=== PATIENT | female | born 1935 | race Hispanic/Latino ===

== ENCOUNTER 2018-06-09 06:37 | Inpatient (IN) | payer MEDICARE ==
--- NOTE | 2018-06-09 07:18 | ED PDOC ---
Arrival/HPI - General Chief Complaint: Altered Mental Status Time Seen by Provider: 06/09/18 07:06 Historian: Family (Son) - History of Present Illness Time/Duration: Prior to Arrival Symptom Onset: Gradual Symptom Course: Worsening Associated Symptoms (Text): 06/09/18 07:15 Patient's son reports that the patient lives alone. The patient's next door sherry meng called the son this morning stating that the patient was wandering around in the streets. This happened yesterday also and the son was able to convince the patient to go back into her home. Today the patient reports that there were people in her house trying to daniel her and the son reports that the entire house is in chaos and that the patient will not admit that she did this to her own apartment. Patient refuses to take all of her medications. There is a history of dementia. He does not take her blood pressure medication or her psychiatric medications. Patient is awake alert cooperative but oriented 1 only. The son believes that the patient needs a psychiatric admission. When she and the son are together she becomes very agitated. When he is not near her she is calm and cooperative. Past Medical History - Provider Review Nursing Documentation Reviewed: Yes - Infectious Disease Hx of Infectious Diseases: None - Tetanus Immunization Tetanus Immunization: Unknown - Cardiac Hx Cardiac Disorders: Yes Hx Hypertension: Yes - Neurological Hx Neurological Disorder: Yes Hx Dementia: Yes Hx Transient Ischemic Attacks (TIA): Yes - Hematological/Oncological Hx Blood Transfusions: No Hx Blood Transfusion Reaction: No - Psychiatric Hx Depression: No Hx Emotional Abuse: No Hx Physical Abuse: No Hx Substance Use: No - Anesthesia Hx Anesthesia Reactions: No Hx Malignant Hyperthermia: No - Suicidal Assessment Feels Threatened In Home Enviroment: No Family/Social History - Physician Review Nursing Documentation Reviewed: Yes Family/Social History: Unknown Family HX Smoking Status: Never Smoked Hx Alcohol Use: No Hx Substance Use: No Hx Substance Use Treatment: No Allergies/Home Meds Allergies/Adverse Reactions: Allergies No Known Allergies Allergy (Verified 02/19/13 17:12) Home Medications: Home Meds Medication Instructions Recorded Confirmed Aspirin [Radha Genuine Aspirin] 81 mg PO DAILY 09/30/12 06/09/18 Clopidogrel Hydrogen Sulfate 1 tab PO DAILY 09/30/12 06/09/18 [Plavix] Ca/D3/Mag Ox/Zinc/Director Electrical Engineering/Maycol/Bor 1 tab PO DAILY 06/09/18 06/09/18 [Calcium 600-D3 Plus Caplet] Losartan/Hydrochlorothiazide 1 tab PO DAILY 06/09/18 06/09/18 [Losartan-Hctz 100-12.5 mg Tab] amLODIPine [Norvasc] 5 mg PO DAILY 06/09/18 06/09/18 Review of Systems - Physician Review All systems were reviewed & negative as marked: Yes - Review of Systems Systems not reviewed;Unavailable: Dementia Physical Exam Vital Signs Reviewed: Yes Vital Signs Temp Pulse Resp BP Pulse Ox 06/09/18 06:49 97.9 F 86 18 167/86 H 97 Temperature: Afebrile Blood Pressure: Hypertensive Pulse: Regular Respiratory Rate: Normal Appearance: Positive for: Well-Appearing, Non-Toxic, Comfortable Pain Distress: None Mental Status: Positive for: other (Oriented 1 only) - Systems Exam Head: Present: Atraumatic, Normocephalic Pupils: Present: PERRL Extroacular Muscles: Present: EOMI Conjunctiva: Present: Normal Mouth: Present: Moist Mucous Membranes Pharnyx: No: ERYTHEMA, EXUDATE, TONSILS ENLARGED Neck: Present: Normal Range of Motion Respiratory/Chest: Present: Clear to Auscultation, Good Air Exchange, Decreased Breath Sounds. No: Respiratory Distress, Accessory Muscle Use Cardiovascular: Present: Regular Rate and Rhythm, Normal S1, S2. No: Murmurs Abdomen: No: Tenderness, Distention, Peritoneal Signs, Rebound, Guarding Upper Extremity: Present: Normal Inspection. No: Cyanosis, Edema Lower Extremity: Present: Normal Inspection. No: Edema Neurological: Present: GCS=15, CN II-XII Intact, Speech Normal, Motor Func Grossly Intact Skin: Present: Warm, Dry, Normal Color. No: Rashes Psychiatric: Present: Alert, Normal Mood, Hallucinations. No: Normal Insight, Normal Concentration, Intoxicated, Lethargic Medical Decision Making ED Course and Treatment: 06/09/18 07:19 EKG shows normal sinus rhythm rate approximately 90 with poor R-wave progression and no acute ST or T-wave changes. 06/09/18 08:20 Patient's daughter arrives who is power of erisa attorney and confirms the son's version that the patient has hallucinations and is demented and she also is requesting a psychiatric admission. 06/09/18 08:38 Crisis has been called for evaluation. 06/09/18 10:50 Seen and evaluated by crisis and psychiatric floor admission arrangements made. - Lab Interpretations Lab Results: Lab Results 06/09/18 06:50: POC Glucose (mg/dL) 91 - RAD Interpretation Radiology Orders: 06/09/18 07:13 HEAD W/O CONTRAST [CT] Stat CHEST PORTABLE [RAD] Stat CT scan of the head as read by the radiologist shows no acute findings. X-ray chest one view is read by the radiologist shows no acute findings. Ux Engineer: Radiologist - EKG Interpretation Interpreted by ED Physician: Yes Type: 12 lead EKG - Scribe Statement The provider has reviewed the documentation as recorded by the Scribe Grazyna Benjamin All medical record entries made by the Scribe were at my direction and personally dictated by me. I have reviewed the chart and agree that the record accurately reflects my personal performance of the history, physical exam, medical decision making, and the department course for this patient. I have also personally directed, reviewed, and agree with the discharge instructions and disposition. Disposition/Present on Arrival - Present on Arrival Any Indicators Present on Arrival: No History of DVT/PE: No History of Uncontrolled Diabetes: No Urinary Catheter: No History of Decub. Ulcer: No History Surgical Site Infection Following: None - Disposition Have Diagnosis and Disposition been Completed?: Yes Diagnosis: Dementia, Urinary tract infection Disposition: HOSPITALIZED Disposition Time: 10:51 Patient Plan: Admission Patient Problems: Current Active Problems Problem Status Onset Dementia Acute Condition: GOOD Referrals: Starr Rivas MD [Primary Care Provider] - Follow up with primary Forms: [employer] (I[place]ic)
[2018-06-09 07:32] LABS: BASO # 0.02 K/mm3 (0.0-2.0); BASO % 0.3 % (0.0-3.0); EOS # 0.2 (0.0-0.7); EOS % 2.5 % (1.5-5.0); GRAN # 3.76 (1.4-6.5); GRAN % 56.2 % (50.0-68.0); HEMOGLOBIN 12.9 g/dL (12.0-16.0); LYMPH # 1.9 (1.2-3.4); MEAN CELL VOLUME 90.5 fl (80.0-105.0); MEAN CORPUSCULAR HEMOGLOBIN 30.5 pg (25.0-35.0); MEAN CORPUSCULAR HGB CONC 33.7 g/dl (31.0-37.0); MEAN PLATELET VOLUME 10.4 fl (7.0-11.0); MONO # 0.8 (0.1-0.6); RBC 4.23 10^6/uL (3.5-6.1); RED CELL DISTRIBUTION WIDTH 12.3 % (11.5-14.5); WHITE BLOOD COUNT 6.7 10^3/ul (4.5-11.0)
[2018-06-09 07:40] LABS: INR 1.04; PARTIAL THROMBOPLASTIN TIME 33.2 Seconds (25.1-36.5)
[2018-06-09 07:44] LABS: ACETAMINOPHEN < 10.0 ug/ml (10.0-20.0); ALB/GLOB RATIO 1.5 (1.1-1.8); ALBUMIN 4.4 g/dL (3.0-4.8); ALT/SGPT 26 U/L (7-56); AST/SGOT 32 U/L (14-36); BLOOD UREA NITROGEN 12 mg/dL (7-21); CALCIUM 9.2 mg/dL (8.4-10.5); GFR NON-AFRICAN AMERICAN > 60; SALICYLATE < 1 mg/dL (2.0-20.0)
[2018-06-09 07:55] LABS: TROPONIN I < 0.01 ng/mL
--- NOTE | 2018-06-09 08:19 | CT ---
Date of service: 06/09/2018 PROCEDURE: CT HEAD WITHOUT CONTRAST. HISTORY: ams COMPARISON: None available. TECHNIQUE: Axial computed tomography images were obtained through the head/brain without intravenous contrast. Radiation dose: Total exam DLP = 831 mGy-cm. This CT exam was performed using one or more of the following dose reduction techniques: Automated exposure control, adjustment of the mA and/or kV according to patient size, and/or use of iterative reconstruction technique. FINDINGS: HEMORRHAGE: No intracranial hemorrhage. BRAIN: No mass effect or edema. Severe chronic microvascular changes are seen in the deep white matter. There are no acute intracranial findings VENTRICLES: Unremarkable. No hydrocephalus. CALVARIUM: Unremarkable. PARANASAL SINUSES: Unremarkable as visualized. No significant inflammatory changes. MASTOID AIR CELLS: Unremarkable as visualized. No inflammatory changes. OTHER FINDINGS: None. IMPRESSION: No acute intracranial findings
--- NOTE | 2018-06-09 08:21 | RAD ---
Date of service: 06/09/2018 HISTORY: ams COMPARISON: 02/19/2013 FINDINGS: LUNGS: No active pulmonary disease. PLEURA: No significant pleural effusion identified, no pneumothorax apparent. CARDIOVASCULAR: Normal. OSSEOUS STRUCTURES: No significant abnormalities. VISUALIZED UPPER ABDOMEN: Normal. OTHER FINDINGS: None. IMPRESSION: No active disease.
[2018-06-09 08:25] LABS: PH,URINE 6.5 (4.7-8.0); URINE APPEARANCE CLEAR (CLEAR); URINE BILIRUBIN NEGATIVE (NEGATIVE); URINE BLOOD SMALL (NEGATIVE); URINE COLOR YELLOW (YELLOW); URINE GLUCOSE (UA) NEGATIVE (NEGATIVE); URINE LEUKOCYTE ESTERASE MODERATE Leu/uL (NEGATIVE); URINE PROTEIN NEGATIVE mg/dL (<30 mg/dL); URINE UROBILINOGEN 0.2 E.U./dL (<1 E.U./dL)
[2018-06-09 08:49] LABS: BARBITURATES, UR NEGATIVE (NEGATIVE); BENZODIAZEPINES, UR NEGATIVE (NEGATIVE); OPIATES, UR NEGATIVE (NEGATIVE); PHENCYCLIDINE, UR NEGATIVE (NEGATIVE)
[2018-06-09 08:54] LABS: URINE BACTERIA MANY (NEG); URINE WBC 20 - 25 /hpf (0-6)
[2018-06-09 08:55] LABS: URINE AMORPHOUS SEDIMENT FEW
[2018-06-09] MEDS ORDERED: Tmp-Smz 800 mg-160 mg DS Tab PO STA (08:59)
--- NOTE | 2018-06-09 09:28 | CARD ---
APPROVED REPORT Date of service: 06/09/2018 EKG Measurement Heart [id number] CT [id number] <Conclusion> Sinus rhythm with premature atrial complexes Minimal voltage criteria for LVH, may be normal variant Cannot rule out Anterior infarct, age undetermined Abnormal ECG
[2018-06-09 13:24] VITALS: O2SAT 99
--- NOTE | 2018-06-09 18:29 | PCM.BM ---
<Leatha Haynes - Last Filed: 06/09/18 18:26> Treatment Plan Problems - Problems identified on initial assessmt MEDICATION NON ADHERENCE Date Initiated: 06/09/18 Time Initiated: 18:30 Assessment reference: NA Status: Active Priority: 1 DELUSIONS Date Initiated: 06/09/18 Time Initiated: 18:30 Assessment reference: NA Status: Active Priority: 2 THOUGHTS PROCESS Date Initiated: 06/09/18 Time Initiated: 18:30 Assessment reference: NA Status: Active Priority: 3 INEFFECTIVE INDV COPING Date Initiated: 06/09/18 Time Initiated: 18:30 Assessment reference: NA Status: Active Priority: 4 Treatment assets and liabiliti Patient Assests: cooperative, good support system, negotiates basic needs Patient Liabilities: live alone, imparied memory - Milieu Protocol Maintain good personal hygiene: daily Encourage regular showers, daily Remind patient to perform daily oral care, daily Assist patient to perform ADL's Maintain personal safety: every shift Educate patient to report safety concerns to staff, every shift Monitor environment for contraband/sharps Medication safety: Monitor for expected outcome, potential side effects: every shift, Assess barriers to learning: every shift, Assess readiness for medication education: every shift Discharge/Continuing Care - Education Needs Education Needs: Family Medication, Family Diagnosis/Disease Process, Family Placement options, Family Community resources, Family Aftercare Safety Plan, Patient Medication, Patient Diagnosis/Disease Process, Patient Placement options, Patient Community resources, Patient Activities of Daily Living, Patient Nutrition, Patient Uses of Medical Equipment, Patient Health Practices/Safety, Patient Personal Hygiene/Grooming, Patient Aftercare Safety Plan - Discharge Discharge Criteria: Tolerates medication w/o severe side effects, Free of paranoid thoughts, Free of agitation, Normal sleep pattern, Ability to care for self, Reduction of target symptoms Discharge to:: Home <Roxie Salas - Last Filed: 06/10/18 16:15> - Diagnosis (1) Dementia with behavioral disturbance Status: Acute Interventions: 06/10/18 16:15 Pt will be seen by medical team as needed Medications will be confirmed and resumed Additional consultation by neurology Lab work as needed (CBC, CMP, TSH, free T4, UA) CXR as needed EKG Physical therapy evaluation as needed antipsychotic meds as needed abx for possible UTI 06/10/18 16:17 <Mary Durant Last Filed: 06/10/18 16:46> Family Contact Family involvement: Family/SO is involved Family contact name: Liana Christie, daughter/POA Family contacted how many times per week?: 2
[2018-06-09 18:57] VITALS: BMI 21.5
[2018-06-10 07:56] LABS: GLUCOSE,FASTING 83 mg/dL (65-110); HDL CHOLESTEROL 67 mg/dL (29-60)
[2018-06-10 08:07] LABS: LDL CHOLESTEROL 125 mg/dL (0-129)
--- NOTE | 2018-06-10 08:49 | CON ---
DATE: 06/09/2018 HISTORY OF PRESENT ILLNESS: This is an 83-year-old female who lives alone, came here because the patient was wandering around in the street and son brought her back to home and the patient refused to take medications, so brought her to the hospital, called to evaluate the patient. ALLERGIES: NO KNOWN DRUG ALLERGY. MEDICATIONS: On Plavix, aspirin, and losartan. PHYSICAL EXAMINATION: VITAL SIGNS: Blood pressure 167/86. HEENT: Normocephalic and atraumatic. NECK: Supple. NEUROLOGIC: Awake, alert, and oriented to self and place. Cranial nerves II through XII are tested. EOM is intact. Visual denney full. No facial asymmetry. Tongue midline. Motor examination; moves all the extremities spontaneously. Deep tendon reflexes are 1+. Both plantars are downgoing. Sensory appears intact. Cerebellar, gait was normal. IMPRESSION AND PLAN: Dementia and CAT scan of the head was done, which was reported negative and workup in progress. Continue Namenda. We will follow up. Blair Pozo MD
--- NOTE | 2018-06-10 15:21 | CP.PCM.CON ---
<Jet Martin - Last Filed: 06/10/18 15:17> History of Present Illness - History of Present Illness History of Present Illness: Jet Martin PGY1 Consult Note for Dr. Park Patient is a 83 year old female with PMH of HTN, hyperlipidemia, dementia, TIA, ischemic cerebrovascular disease who was brought in to the ER yesterday for altered mental status. Her son states that the patient was wandering around in the streets and was unable to convince patient to go back into her house. Yesterday, the patient reports that there were people in her house trying to daniel her and the son reports that the entire house was in chaos and that the patient will not admit that she did this to her own apartment. Patient refuses to take her BP or psychiatric medications. Today, patient denies any acute complaints, including headaches, chest pain, shortness of breath, n/v/c/d, leg swelling. In the ED, EKG showed normal sinus rhythm rate approximately 90 with poor R-wave progression and no acute ST or T-wave changes. CT scan of the head and X-ray of the chest shows no acute findings. Crisis was called for evaluation. Patient was started on her home psychiatric and blood pressure medications. Neurology was consulted. PMH: HTN, Hyperlipidemia, dementia, ischemic cerebrovascular disease, Hx of TIA PSH: unobtainable Allergies: NKDA Social/Family hx: Patient lives alone. Patient denies any smoking, alcohol or drug use. Unknown family history. Home medications: Aspirin 81 mg qd Clopidogrel 75 mg 1qd Losartan/HCTZ 100-12.5 1qd Amlodipine 5 mg 1qd Ca 600 -D3 Plus caplet Review of Systems - Review of Systems Review of Systems: as per HPI Past Patient History - Infectious Disease Hx of Infectious Diseases: None - Tetanus Immunizations Tetanus Immunization: Unknown - Past Social History Smoking Status: Never Smoked - CARDIAC Hx Cardiac Disorders: Yes Hx Hypertension: Yes - PULMONARY Hx Tuberculosis: No - NEUROLOGICAL Hx Neurological Disorder: Yes Hx Dementia: Yes Hx Transient Ischemic Attacks (TIA): Yes - HEMATOLOGICAL/ONCOLOGICAL Hx Blood Transfusions: No Hx Blood Transfusion Reaction: No - GENITOURINARY/GYNECOLOGICAL Hx Sexually Transmitted Disorders: No - PSYCHIATRIC Hx Substance Use: No - SURGICAL HISTORY Hx Surgeries: No - ANESTHESIA Hx Anesthesia Reactions: No Hx Malignant Hyperthermia: No Meds Allergies/Adverse Reactions: Allergies Allergy/AdvReac Type Severity Reaction Status Date / Time No Known Allergies Allergy Verified 06/09/18 18:56 - Medications Medications: Current Medications Amlodipine Besylate (Norvasc) 5 mg PO DAILY [facility] Last Admin: 06/10/18 09:47 Dose: 5 mg Clopidogrel Bisulfate (Plavix) 75 mg PO DAILY [facility] Last Admin: 06/10/18 09:48 Dose: 75 mg Hydralazine HCl (Apresoline) 10 mg PO Q6H PRN PRN Reason: Systolic Blood Pressure Hydrochlorothiazide (Microzide) 12.5 mg PO DAILY [facility] Last Admin: 06/10/18 09:48 Dose: 12.5 mg Losartan Potassium (Cozaar) 100 mg PO DAILY [facility] Last Admin: 06/10/18 09:47 Dose: 100 mg Quetiapine Fumarate (Seroquel) 25 mg PO HS [facility]; Protocol Ziprasidone (Geodon Inj) 10 mg IM TID PRN; Protocol PRN Reason: severe agitaiton/psychosis Ziprasidone (Geodon Cap) 20 mg PO Q6H PRN; Protocol PRN Reason: psychosis/agitation Physical Exam - Constitutional Appears: Well, No Acute Distress, Confused - Head Exam Head Exam: ATRAUMATIC, NORMOCEPHALIC - Eye Exam Eye Exam: EOMI, Normal appearance Pupil Exam: NORMAL ACCOMODATION, PERRL - ENT Exam ENT Exam: Mucous Membranes Moist, Normal Exam - Neck Exam Neck exam: Positive for: Normal Inspection - Respiratory Exam Respiratory Exam: Clear to Auscultation Bilateral, NORMAL BREATHING PATTERN. absent: Rales, Rhonchi, Wheezes - Cardiovascular Exam Cardiovascular Exam: REGULAR RHYTHM, +S1, +S2. absent: Gallop, Rubs, Systolic Murmur - GI/Abdominal Exam GI & Abdominal Exam: Normal Bowel Sounds, Soft. absent: Distended, Firm, Tenderness - Extremities Exam Extremities exam: Positive for: normal inspection. Negative for: pedal edema - Neurological Exam Neurological exam: Alert Additional comments: AAO x1, to person - Psychiatric Exam Psychiatric exam: Normal Affect, Normal Mood Results - Vital Signs Recent Vital Signs: Last Vital Signs Temp 98.0 F 06/10/18 07:18 Pulse 74 06/10/18 09:47 Resp 20 06/10/18 07:18 BP 162/79 H 06/10/18 09:47 Pulse Ox 99 06/09/18 13:51 - Labs Result Diagrams: 06/09/18 07:20 06/09/18 07:20 Labs: Laboratory Results - last 24 hr 06/10/18 06/10/18 07:15 07:15 Fasting Glucose 83 Triglycerides 82 Cholesterol 237 H LDL Cholesterol Direct 125 HDL Cholesterol 67 H TSH 3rd Generation 4.34 Assessment & Plan - Assessment and Plan (Free Text) Assessment: 83yo F PMH HTN, hyperlipidemia, dementia, TIA, ischemic cerebrovascular disease who was brought in to the ER yesterday for altered mental status, admitted to psych for dementia with psychotic features. Medicine was consulted for evaluation of her HTN and HLD. Plan: HTN - BP 162/79, before AM meds - pt asymptomatic - continue norvasc 5 daily - continue hydralazine 10 q6h PRN SBP >160 - continue HCTZ 12.5 daily - continue losartan 100 daily - monitor BP H/o TIA - continue plavix 75 daily Dementia - continue seroquel 25 HS - continue geodon PRN Pt seen and case reviewed with Dr. Park. We will sign off of this patient at this time. Please re-consult us for returning issues. Thank you for allowing us to participate in care with you. <Fatoumata Park - Last Filed: 06/11/18 16:06> Meds - Medications Medications: Current Medications Amlodipine Besylate (Norvasc) 5 mg PO DAILY [facility] Last Admin: 06/10/18 09:47 Dose: 5 mg Cefpodoxime Proxetil (Vantin) 100 mg PO Q12 [facility]; Protocol Last Admin: 06/11/18 06:52 Dose: 100 mg Clopidogrel Bisulfate (Plavix) 75 mg PO DAILY [facility] Last Admin: 06/10/18 09:48 Dose: 75 mg Hydralazine HCl (Apresoline) 10 mg PO Q6H PRN PRN Reason: Systolic Blood Pressure Hydrochlorothiazide (Microzide) 12.5 mg PO DAILY [facility] Last Admin: 06/10/18 09:48 Dose: 12.5 mg Losartan Potassium (Cozaar) 100 mg PO DAILY [facility] Last Admin: 06/10/18 09:47 Dose: 100 mg Quetiapine Fumarate (Seroquel) 25 mg PO AMHS [facility]; Protocol Last Admin: 06/10/18 22:09 Dose: Not Given Ziprasidone (Geodon Inj) 10 mg IM TID PRN; Protocol PRN Reason: severe agitaiton/psychosis Last Admin: 06/10/18 21:58 Dose: 10 mg Ziprasidone (Geodon Cap) 20 mg PO Q6H PRN; Protocol PRN Reason: psychosis/agitation Results - Vital Signs Recent Vital Signs: Last Vital Signs Temp 97.6 F 06/11/18 07:11 Pulse 70 06/11/18 07:11 Resp 20 06/11/18 07:11 BP 157/71 H 06/11/18 07:11 Pulse Ox 99 06/09/18 13:51 - Labs Result Diagrams: 06/09/18 07:20 06/09/18 07:20 Labs: Laboratory Results - last 24 hr 06/10/18 07:15 RPR Nonreactive Attending/Attestation - Attestation I have personally seen and examined this patient.: Yes I have fully participated in the care of the patient.: Yes I have reviewed all pertinent clinical information: Yes Notes (Text): 06/11/18 16:03 Medical record note made by the resident after discussion with my direction and input after the patient was personally seen and examined by me. I have reviewed the chart and agree that the record accurately reflects by personal performance of the history, physical exam, data review, and medical decision-making, in the course for the patient. I have also personally directed the plan of care. UA is suggestive of UTI. We will start on oral antibiotics Cefpodoxime 100 mg BID for 5 days and will also follow up cultures. HTN continue Losartan and Amlodpine , will monitor blood pressure. There is no active medical issue at this time.We will sign off. Please call us back if any question.
--- NOTE | 2018-06-10 16:14 | PCM.PSYCH ---
Initial Psychiatric Evaluation - Initial Psychiatric Evaluation Type of Admission: Voluntary Legal Status: DPOA (patient daughter ROBIN signed consent for treatment) Chief Complaint (in patient's own words): "my family including my daughter wanted me out of the house, they want to sell my house, they were saying crazy stuff about me, my nephew was saying that I am whoooohoooo, you know what I mean whooooohooo..." Patient's Reaction to Hospitalization: patient was admitted to the psychiatric inpatient unit for evaluation and stabilization of psychosis, patient was wandering around in the community, had visual hallucinations, paranoia, inability to function. History of Present Illness and Precipitating Events: shortly patient is 83 year old female not known previous psychiatric history, patient was brought in by her family including her daughter who is pt's power of ip technology transactions attorney, as per report pt's neighbor called pt's son tstating that the patient was wandering around in the streets. Pt was convinced that there were people in her house trying to daniel her, as per ED report pt's son found pt's a[place] is in chaos and that the patient will not admit that she did this to her own apartment, pt was refusing to take all of her medications, was refusing to go and see doctors in the community, pt also has ? h/o of dementia, pt was refusing her blood pressure medication or her psychiatric medications. this keno writer / runner had prolonged conversation with patient's power of ip technology transactions attorney Liana, daughter of the patient. As per Liana patient was not taking her medications, was refusing to go to the doctors, as a result patient appears to be more disorganized, was wandering in the community at times patient feels paranoid as well as having visual hallucinations has impression that people are breaking into her house, patient never been evaluated by neurologist or she did not see primary care physician for months and years. Family is very concerned about patient safety, this keno writer / runner educated power of ip technology transactions attorney about risk, benefits, and alternatives of medications, treatment plan was discussed in details before patient was accepted into the psychiatric inpatient unit. POA agreed with the treatment plan and was appreciative. patient was seen and examined today at the treatment team meeting, patient presented to be confused, disorganized, extremely paranoid, pt was convinced that her family is selling her house, pt also convinced that her daughter is spreading the rumors about pt "everybody think that I am whooooohooo". pt wa very hard to interview, pt is disorganized, confused, does not know where she is. Medical h/o: hyperlipidemia, hypertension, urinary tract infection. Past psychiatric history: Not known, as per family patient did not have history any mental illness, but possible dementia. Family history: Strong family history of dementia. 06/09/18 07:20 06/09/18 07:20 Lab Results 06/10/18 07:15: TSH 3rd Generation 4.34 06/10/18 07:15: Fasting Glucose 83, Triglycerides 82, Cholesterol 237 H, LDL Cholesterol Direct 125, HDL Cholesterol 67 H 06/09/18 08:30: Ammonia < 9 L 06/09/18 08:20: Urine Opiates Screen Negative, Urine Methadone Screen Negative, Ur Barbiturates Screen Negative, Ur Phencyclidine Scrn Negative, Ur Amphetamines Screen Negative, U Benzodiazepines Scrn Negative, U Oth Cocaine Metabols Negative, U Cannabinoids Screen Negative 06/09/18 08:18: Urine Color Yellow, Urine Appearance Clear, Urine pH 6.5, Ur Specific [place] 1.010, Urine Protein Negative, Urine Glucose (UA) Negative, Urine Ketones Negative, Urine Blood Small H, Urine Nitrate Negative, Urine Bilirubin Negative, Urine Urobilinogen 0.2, Ur Leukocyte Esterase Moderate H, Urine RBC 5 - 10, Urine WBC 20 - 25, Ur Epithelial Cells 4 - 5, Amorphous Sediment Few, Urine Bacteria Many 06/09/18 07:20: Salicylates < 1 L, Acetaminophen < 10.0 L 06/09/18 07:20: TSH 3rd Generation 3.95, Alcohol, Quantitative < 10 06/09/18 07:20: Sodium 140, Potassium 3.6, Chloride 104, Carbon Dioxide 27, An ion Gap 13, BUN 12, Creatinine 0.6 L, Est GFR ( Amer) > 60, Est GFR (Non- Af Amer) > 60, Random Glucose 93, Calcium 9.2, Phosphorus 3.6, Magnesium 2.1, Total Bilirubin 0.5, AST 32, ALT 26, Alkaline Phosphatase 54, Lactate Dehydrogenase 585, Total Creatine Kinase 180, Troponin I < 0.01, Total Protein 7.3, Albumin 4.4, Globulin 2.9, Albumin/Globulin Ratio 1.5 06/09/18 07:20: PT 12.0, INR 1.04, APTT 33.2 06/09/18 07:20: WBC 6.7, RBC 4.23, Hgb 12.9, Hct 38.3, MCV 90.5, MCH 30.5, MCHC 33.7, RDW 12.3, Plt Count 278, MPV 10.4, Gran % 56.2, Lymph % (Auto) 29.0, [place] % (Auto) 12.0 H, Eos % (Auto) 2.5, Baso % (Auto) 0.3, Gran # 3.76, Lymph # (Auto) 1.9, [place] # (Auto) 0.8 H, Eos # (Auto) 0.2, Baso # (Auto) 0.02 06/09/18 06:50: POC Glucose (mg/dL) 91 Vital Signs Temp Pulse Resp BP Pulse Ox 06/10/18 09:47 74 162/79 H 06/10/18 07:18 98.0 F 74 20 162/79 H 06/09/18 17:50 82 18 144/63 06/09/18 16:40 71 18 180/82 H 06/09/18 16:00 71 180/82 H 06/09/18 15:00 97.9 F 88 18 181/93 H 06/09/18 13:51 98.2 F 86 17 152/95 H 99 06/09/18 13:07 83 17 152/95 H 99 06/09/18 12:45 98.2 F 87 17 99 06/09/18 09:12 79 17 166/76 H 97 06/09/18 07:29 81 17 173/98 H 98 06/09/18 06:49 97.9 F 86 18 167/86 H 97 Current Medications: Active Medications Generic Name Dose Route Start Last Admin Trade Name Freq PRN Reason Stop Dose Admin Amlodipine Besylate 5 mg 06/10/18 08:00 Norvasc PO DAILY PAULINE Clopidogrel Bisulfate 75 mg 06/09/18 15:00 06/09/18 16:00 Plavix PO 75 mg DAILY PAULINE Administration Hydralazine HCl 10 mg 06/09/18 14:51 Apresoline PO Q6H PRN Systolic Blood Pressure Hydrochlorothiazide 12.5 mg 06/10/18 08:00 Microzide PO DAILY PAULINE Losartan Potassium 100 mg 06/10/18 08:00 Cozaar PO DAILY PAULINE Quetiapine Fumarate 12.5 mg 06/09/18 22:00 06/09/18 21:31 Seroquel PO 12.5 mg HS PAULINE Administration Protocol Ziprasidone 10 mg 06/09/18 16:08 Geodon Inj IM TID PRN severe agitaiton/psychosis Protocol Ziprasidone 20 mg 06/09/18 16:08 Geodon Cap PO Q6H PRN psychosis/agitation Protocol Past Psychiatric History - Past Psychiatric History Previous Treatment History: None Prior Professional Help: see HPI Prior Psychiatric Treatment: see HPI At what hospital: see HPI Duration: see HPI Nature of Treatment: see HPI Explanation of prior treatment: see HPI History of Abuse: see HPI denied History of ETOH/Drug Use: see HPI as per family patient does not have history of substance abuse, no history of alcohol use, patient does not smoke History of Family Illness: strong family history of dementia Pertinent Medical Hx (Current Medical&Sleep Prob, Allergies): Allergies Allergy/AdvReac Type Severity Reaction Status Date / Time No Known Allergies Allergy Verified 06/09/18 18:56 Aspirin [Radha Genuine Aspirin] 81 mg PO DAILY 09/30/12 Clopidogrel Hydrogen Sulfate [Plavix] 1 tab PO DAILY 09/30/12 Ca/D3/Mag Ox/Zinc/Candy Dipper/Maycol/Bor [Calcium 600-D3 Plus Cap[place]] 1 tab PO DAILY 06/09/18 Losartan/Hydrochlorothiazide [Losartan-Hctz 100-12.5 mg Tab] 1 tab PO DAILY 06/09/18 amLODIPine [Norvasc] 5 mg PO DAILY 06/09/18 Review of Systems - Review of Systems Systems not reviewed;Unavailable: Acuity of Condition - EENT Eyes: As Per HPI Ears: As Per HPI Nose/Mouth/Throat: As Per HPI - Breasts Breasts: As Per HPI - Cardiovascular Cardiovascular: As Per HPI - Respiratory Respiratory: As Per HPI - Gastrointestinal Gastrointestinal: As Per HPI - Genitourinary Genitourinary: As Per HPI - Reproductive: Female Reproductive:Female: As Per HPI - Menstruation Menstruation: As Per HPI - Musculoskeletal Musculoskeletal: As Par HPI - Integumentary Integumentary: As Per HPI - Neurological Neurological: As Per HPI - Psychiatric Psychiatric: As Per HPI - Endocrine Endocrine: As Per HPI - Hematologic/Lymphatic Hematologic: As Per HPI Mental Status Examination - Personal Presentation Personal Presentation: Looks stated age - Affect Affect: Constricted (irritable and annoyed), Flat - Motor Activity Motor Activity: Calm - Reliability in Providing Information Reliability in Providing Information: Poor, due to alteration in thoughts, Poor, due to cognitve impairment - Speech Speech: Disorganized, Irrelevant, Tangential - Mood Mood: Depressed, Anxious - Formal Thought Process Formal Thought Process: Hallucinations, Delusions, Paranoia, Loosening of associations, Circumstantial - Hallucinations/Delusions Hallucinations: Visual, Auditory Delusions: Persecution - Obsessions/Compulsions Obsessions: None Compulsions: None - Cognitive Functions Orientation: Person Sensorium: Alert Estimate of Intelligence: Below average Judgement: Imparied, as evidence by: Poor judgement, Imparied, as evidence by: Lack of insight into illness - Risk Risk: Elopement, Self-mutilation, Diminished functioning - Strength & Assets Inventory Strength & Assets Inventory: Other (family support, relatively good physical health) - Limitations Limitations: Other (severe no social symptoms, lives alone,dementia) DSM 5 DX - DSM 5 DSM 5 Diagnosis: psychosis NOS Rule out dementia with psychosis Rule out delirium - Recommended/Plan of Treatment Treatment Recommendations and Plan of Treatment: Milieu/structure/supportive therapy Medical consult called neurology consult called SW consultation for discharge plan and social issues Med management Seroquel 25 mg at the nighttime for psychosis Family involvement, discussed with pt's POA, risk, benefits, alternatives of medication as well as treatment plan discussed with POA Follow up on labs Will monitor closely Pt was educated about risk/benefits and alternatives of medications, coping strategies (safety plan, suicide prevention), relapse prevention, importance of follow up with psychiatrist and therapist, stay away from drugs/alcohol/smoking the rest of the medications as per medical team: Aspirin [Radha Genuine Aspirin] 81 mg PO DAILY Losartan/Hydrochlorothiazide [Losartan-Hctz 100-12.5 mg Tab] 1 tab PO DAILY amLODIPine [Norvasc] 5 mg PO DAILY Projected ELOS: 7 days Prognosis: guarded Discharge Plan and Discharge Criteria: Pt will be not depressed or manic, will be more hopeful, will be not psychotic or anxious, will be not having thoughts of harming self or others, will be tolerating medications well, will not have major side effects, will be able to function, will not pose threat to self or others. - Smoking Cessation Smoking Cessation Initiated: No Reason for not providing: denied smoking
[2018-06-10] MEDS: Cefpodoxime (Vantin) 100 mg Tab PO SCH (19:01)
[2018-06-11] MEDS: Cefpodoxime (Vantin) 100 mg Tab PO SCH ×2 (06:52→17:15)
--- NOTE | 2018-06-11 13:46 | CP.PCM.PCO ---
Physician Communication Note - Physician Communication Note Physician Communication Note: moderate cognitive impairment. c/w namenda 10mg po bid. f/u out pt.
--- NOTE | 2018-06-11 16:53 | PCM.PYCHPN ---
Psychiatric Progress Note - Psychiatric Progress Note Patient seen today, length of contact: 30 minutes Patient Chief Complaint: "I don't know..." Problems Identified/Issues Discussed: S group underwriter discussed treatment plan with patient power of title attorney, risks, benefits, alternatives of the medication discussed, POBlanco agreed. Medical Problems: see HPI she was seen by medical team, consult appreciated Diagnostic Results: 06/09/18 07:20 06/09/18 07:20 Lab Results 06/10/18 07:15: RPR Nonreactive 06/10/18 07:15: TSH 3rd Generation 4.34 06/10/18 07:15: Fasting Glucose 83, Triglycerides 82, Cholesterol 237 H, LDL Cholesterol Direct 125, HDL Cholesterol 67 H 06/09/18 08:30: Ammonia < 9 L 06/09/18 08:20: Urine Opiates Screen Negative, Urine Methadone Screen Negative, Ur Barbiturates Screen Negative, Ur Phencyclidine Scrn Negative, Ur Amphetamines Screen Negative, U Benzodiazepines Scrn Negative, U Oth Cocaine Metabols Neg ative, U Cannabinoids Screen Negative 06/09/18 08:18: Urine Color Yellow, Urine Appearance Clear, Urine pH 6.5, Ur Specific [place] 1.010, Urine Protein Negative, Urine Glucose (UA) Negative, Urine Ketones Negative, Urine Blood Small H, Urine Nitrate Negative, Urine Bilirubin Negative, Urine Urobilinogen 0.2, Ur Leukocyte Esterase Moderate H, Urine RBC 5 - 10, Urine WBC 20 - 25, Ur Epithelial Cells 4 - 5, Amorphous [place] Few, Urine Bacteria Many 06/09/18 07:20: Salicylates < 1 L, Acetaminophen < 10.0 L 06/09/18 07:20: TSH 3rd Generation 3.95, Alcohol, Quantitative < 10 06/09/18 07:20: Sodium 140, Potassium 3.6, Chloride 104, Carbon Dioxide 27, Anion Gap 13, BUN 12, Creatinine 0.6 L, Est GFR ( Amer) > 60, Est GFR (Non-Af Amer) > 60, Random Glucose 93, Calcium 9.2, Phosphorus 3.6, Magnesium 2.1, Total Bilirubin 0.5, AST 32, ALT 26, Alkaline Phosphatase 54, Lactate Dehydrogenase 585, Total Creatine Kinase 180, Troponin I < 0.01, Total Protein 7.3, Albumin 4.4, Globulin 2.9, Albumin/Globulin Ratio 1.5 06/09/18 07:20: PT 12.0, INR 1.04, APTT 33.2 06/09/18 07:20: WBC 6.7, RBC 4.23, Hgb 12.9, Hct 38.3, MCV 90.5, MCH 30.5, MCHC 33.7, RDW 12.3, Plt Count 278, MPV 10.4, Gran % 56.2, Lymph % (Auto) 29.0, [place] % (Auto) 12.0 H, Eos % (Auto) 2.5, Baso % (Auto) 0.3, Gran # 3.76, Lymph # (Auto) 1.9, [place] # (Auto) 0.8 H, Eos # (Auto) 0.2, Baso # (Auto) 0.02 06/09/18 06:50: POC Glucose (mg/dL) 91 Vital Signs Temp Pulse Resp BP Pulse Ox 06/11/18 07:11 97.6 F 70 20 157/71 H 06/10/18 16:00 77 161/69 H 06/10/18 09:47 74 162/79 H 06/10/18 07:18 98.0 F 74 20 162/79 H 06/09/18 17:50 82 18 144/63 06/09/18 16:40 71 18 180/82 H 06/09/18 16:00 71 180/82 H 06/09/18 15:00 97.9 F 88 18 181/93 H 06/09/18 13:51 98.2 F 86 17 152/95 H 99 06/09/18 13:07 83 17 152/95 H 99 06/09/18 12:45 98.2 F 87 17 99 06/09/18 09:12 79 17 166/76 H 97 06/09/18 07:29 81 17 173/98 H 98 06/09/18 06:49 97.9 F 86 18 167/86 H 97 DSM 5 Symptoms Update: shortly patient is 83 year old female not known previous psychiatric history, patient was brought in by her family including her daughter who is pt's power of title attorney, as per report pt's neighbor called pt's son tstating that the patient was wandering around in the streets. Pt was convinced that there were people in her house trying to daniel her, as per ED report pt's son found pt's house is in chaos and that the patient will not admit that she did this to her own apartment, pt was refusing to take all of her medications, was refusing to go and see doctors in the community, pt also has ? h/o of dementia, pt was refusing her blood pressure medication or her psychiatric medications. he shouldn't was seen today at the dining area, patient presented to be confused, paranoid, no changes with yesterday presentation. As per staff patient was compliant with the medications, has tendency to wander, needs constant redirection.. No agitation or aggression, patient tolerates medications well, no side effects observed or reported, aims 0, no EPS. Discussed with neurology team, Namenda was started. discussed with internal medicine team, antibiotic started for urinary tract infection DSM 5 Diagnosis: psychosis NOS Rule out dementia with psychosis Rule out delirium Medication Change: Yes (seroquel started) Medical Record Reviewed: Yes Consults ordered or reviewed: medical consultation appreciated Neurology consultation appreciated Mental Status Examination - Cognitive Function Orientation: Person Memory: Impaired Attention: Poor Concentration: Poor Association: Loose Fund of Knowledge: Poor - Mood Mood: Depressed, Anxious - Affect Affect: Constricted (irritable and annoyed), Flat - Formal Thought Process Formal Thought Process: Hallucinations, Delusions, Paranoia, Loosening of associations, Circumstantial - Suicidal Ideation Suicidal Ideation: No - Homicidal Ideation Homicidal Ideation: No Goal/Treatment Plan - Goal/Treatment Plan Need for Continued Stay: Remain at risks for inpatient hospitalization, Severe depression anxiety, Discharge may exacerbated symptoms, Severe functional impairment Progress Toward Problem(s) and Goals/Treatment Plan: Milieu/structure/supportive therapy Medical consult called neurology consult called SW consultation for discharge plan and social issues Med management Seroquel 25 mg at the morning and the nighttime for psychosis Family involvement, discussed with pt's POA, risk, benefits, alternatives of medication as well as treatment plan antibiotic started for urinary tract infection discussed with POA Follow up on labs Will monitor closely Pt was educated about risk/benefits and alternatives of medications, coping strategies (safety plan, suicide prevention), relapse prevention, importance of follow up with psychiatrist and therapist, stay away from drugs/alcohol/smoking the rest of the medications as per medical team: Aspirin [Radha Genuine Aspirin] 81 mg PO DAILY Losartan/Hydrochlorothiazide [Losartan-Hctz 100-12.5 mg Tab] 1 tab PO DAILY amLODIPine [Norvasc] 5 mg PO DAILY Estimated Date of D/C: 06/16/18
[2018-06-12] MEDS: Cefpodoxime (Vantin) 100 mg Tab PO SCH ×2 (06:29→17:56)
--- NOTE | 2018-06-12 15:17 | PCM.PYCHPN ---
Psychiatric Progress Note - Psychiatric Progress Note Patient seen today, length of contact: 30 minutes Patient Chief Complaint: "I told my family I am still alive, why do you want to sell the house?, then I saw one francesco with a bra on, it is coocoo" Problems Identified/Issues Discussed: S commercial loan underwriter discussed treatment plan with patient power of state assessed properties director, risks, benefits, alternatives of the medication discussed, POA agreed. Medical Problems: see HPI she was seen by medical team, consult appreciated Diagnostic Results: 06/09/18 07:20 06/09/18 07:20 Lab Results 06/10/18 07:15: RPR Nonreactive 06/10/18 07:15: TSH 3rd Generation 4.34 06/10/18 07:15: Fasting Glucose 83, Triglycerides 82, Cholesterol 237 H, LDL Cholesterol Direct 125, HDL Cholesterol 67 H 06/09/18 08:30: Ammonia < 9 L 06/09/18 08:20: Urine Opiates Screen Negative, Urine Methadone Screen Negative, Ur Barbiturates Screen Negative, Ur Phencyclidine Scrn Negative, Ur Amphetamines Screen Negative, U Benzodiazepines Scrn Negative, U Oth Cocaine Metabols N egative, U Cannabinoids Screen Negative 06/09/18 08:18: Urine Color Yellow, Urine Appearance Clear, Urine pH 6.5, Ur Specific [place] 1.010, Urine Protein Negative, Urine Glucose (UA) Negative, Urine Ketones Negative, Urine Blood Small H, Urine Nitrate Negative, Urine Bilirubin Negative, Urine Urobilinogen 0.2, Ur Leukocyte Esterase Moderate H, Urine RBC 5 - 10, Urine WBC 20 - 25, Ur Epithelial Cells 4 - 5, Amorphous Sedi ment Few, Urine Bacteria Many 06/09/18 07:20: Salicylates < 1 L, Acetaminophen < 10.0 L 06/09/18 07:20: TSH 3rd Generation 3.95, Alcohol, Quantitative < 10 06/09/18 07:20: Sodium 140, Potassium 3.6, Chloride 104, Carbon Dioxide 27, Anion Gap 13, BUN 12, Creatinine 0.6 L, Est GFR ( Amer) > 60, Est GFR (Non-Af Amer) > 60, Random Glucose 93, Calcium 9.2, Phosphorus 3.6, Magnesium 2.1, Total Bilirubin 0.5, AST 32, ALT 26, Alkaline Phosphatase 54, Lactate Dehydrogenase 585, Total Creatine Kinase 180, Troponin I < 0.01, Total Protein 7.3, Albumin 4.4, Globulin 2.9, Albumin/Globulin Ratio 1.5 06/09/18 07:20: PT 12.0, INR 1.04, APTT 33.2 06/09/18 07:20: WBC 6.7, RBC 4.23, Hgb 12.9, Hct 38.3, MCV 90.5, MCH 30.5, MCHC 33.7, RDW 12.3, Plt Count 278, MPV 10.4, Gran % 56.2, Lymph % (Auto) 29.0, [place] % (Auto) 12.0 H, Eos % (Auto) 2.5, Baso % (Auto) 0.3, Gran # 3.76, Lymph # (Auto) 1.9, [place] # (Auto) 0.8 H, Eos # (Auto) 0.2, Baso # (Auto) 0.02 06/09/18 06:50: POC Glucose (mg/dL) 91 Vital Signs Temp Pulse Resp BP Pulse Ox 06/11/18 07:11 97.6 F 70 20 157/71 H 06/10/18 16:00 77 161/69 H 06/10/18 09:47 74 162/79 H 06/10/18 07:18 98.0 F 74 20 162/79 H 06/09/18 17:50 82 18 144/63 06/09/18 16:40 71 18 180/82 H 06/09/18 16:00 71 180/82 H 06/09/18 15:00 97.9 F 88 18 181/93 H 06/09/18 13:51 98.2 F 86 17 152/95 H 99 06/09/18 13:07 83 17 152/95 H 99 06/09/18 12:45 98.2 F 87 17 99 06/09/18 09:12 79 17 166/76 H 97 06/09/18 07:29 81 17 173/98 H 98 06/09/18 06:49 97.9 F 86 18 167/86 H 97 DSM 5 Symptoms Update: shortly patient is 83 year old female not known previous psychiatric history, patient was brought in by her family including her daughter who is pt's power of state assessed properties director, as per report pt's neighbor called pt's son tstating that the patient was wandering around in the streets. Pt was convinced that there were people in her house trying to daniel her, as per ED report pt's son found pt's house is in chaos and that the patient will not admit that she did this to her own apartment, pt was refusing to take all of her medications, was refusing to go and see doctors in the community, pt also has ? h/o of dementia, pt was refusing her blood pressure medication or her psychiatric medications. pt was seen today Nursing station, hygiene is much better, patient wears being bathrobe, patient appears to be more organized, patient knows that she is in [facility], but still thought process is completely psychotic, patient actively hallucinating seeing person with a bra,, patient was having trouble to express herself at the same time was making jumping movements,, patient still paranoid about her family that they want to sell the house patient said "but I'm still alive". No agitation or aggression, patient tolerates medications well, no side effects observed or reported, aims 0, no EPS. Discussed with neurology team, Namenda was started. discussed with internal medicine team, antibiotic started for urinary tract infection DSM 5 Diagnosis: psychosis NOS Rule out dementia with psychosis Rule out delirium Medication Change: Yes (seroquel increased) Medical Record Reviewed: Yes Consults ordered or reviewed: medical consultation appreciated Neurology consultation appreciated Mental Status Examination - Cognitive Function Orientation: Person Memory: Impaired Attention: Poor Concentration: Poor Association: Loose Fund of Knowledge: Poor - Mood Mood: Depressed, Anxious - Affect Affect: Constricted (irritable and annoyed), Flat - Formal Thought Process Formal Thought Process: Hallucinations, Delusions, Paranoia, Loosening of associations, Circumstantial - Suicidal Ideation Suicidal Ideation: No - Homicidal Ideation Homicidal Ideation: No Goal/Treatment Plan - Goal/Treatment Plan Need for Continued Stay: Remain at risks for inpatient hospitalization, Severe depression anxiety, Discharge may exacerbated symptoms, Severe functional impairment Progress Toward Problem(s) and Goals/Treatment Plan: Milieu/structure/supportive therapy Medical consult called neurology consult called SW consultation for discharge plan and social issues Med management Seroquel 50 mg at the morning and the nighttime for psychosis Family involvement, discussed with pt's POA, risk, benefits, alternatives of medication as well as treatment plan antibiotic started for urinary tract infection discussed with POA Follow up on labs Will monitor closely Pt was educated about risk/benefits and alternatives of medications, coping strategies (safety plan, suicide prevention), relapse prevention, importance of follow up with psychiatrist and therapist, stay away from drugs/alcohol/smoking the rest of the medications as per medical team: Aspirin [Radha Genuine Aspirin] 81 mg PO DAILY Losartan/Hydrochlorothiazide [Losartan-Hctz 100-12.5 mg Tab] 1 tab PO DAILY amLODIPine [Norvasc] 5 mg PO DAILY antibiotics for UTI Estimated Date of D/C: 06/16/18
--- NOTE | 2018-06-12 16:32 | CP.PCM.PCO ---
Physician Communication Note - Physician Communication Note Physician Communication Note: BP is runnig high.Amlodpine increased to 10 mg daily
[2018-06-13] MEDS: Cefpodoxime (Vantin) 100 mg Tab PO SCH ×2 (06:41→17:13)
--- NOTE | 2018-06-13 13:57 | PCM.PYCHPN ---
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 Medical Problems: see HPI she was seen by medical team, consult appreciated Diagnostic Results: 06/09/18 07:20 06/09/18 07:20 Lab Results 06/10/18 07:15: RPR Nonreactive 06/10/18 07:15: TSH 3rd Generation 4.34 06/10/18 07:15: Fasting Glucose 83, Triglycerides 82, Cholesterol 237 H, LDL Cholesterol Direct 125, HDL Cholesterol 67 H 06/09/18 08:30: Ammonia < 9 L 06/09/18 08:20: Urine Opiates Screen Negative, Urine Methadone Screen Negative, Ur Barbiturates Screen Negative, Ur Phencyclidine Scrn Negative, Ur Amphetamines Screen Negative, U Benzodiazepines Scrn Negative, U Oth Cocaine Metabols Negative, U Cannabinoids Screen Negative 06/09/18 08:18: Urine Color Yellow, Urine Appearance Clear, Urine pH 6.5, Ur Spe cific [place] 1.010, Urine Protein Negative, Urine Glucose (UA) Negative, Urine Ketones Negative, Urine Blood Small H, Urine Nitrate Negative, Urine Bilirubin Negative, Urine Urobilinogen 0.2, Ur Leukocyte Esterase Moderate H, Urine RBC 5 - 10, Urine WBC 20 - 25, Ur Epithelial Cells 4 - 5, Amorphous Sediment Few, Urine Bacteria Many 06/09/18 07:20: Salicylates < 1 L, Acetaminophen < 10.0 L 06/09/18 07:20: TSH 3rd Generation 3.95, Alcohol, Quantitative < 10 06/09/18 07:20: Sodium 140, Potassium 3.6, Chloride 104, Carbon Dioxide 27, Anion Gap 13, BUN 12, Creatinine 0.6 L, Est GFR ( Amer) > 60, Est GFR (Non-Af Amer) > 60, Random Glucose 93, Calcium 9.2, Phosphorus 3.6, Magnesium 2.1, Total Bilirubin 0.5, AST 32, ALT 26, Alkaline Phosphatase 54, Lactate Dehydrogenase 585, Total Creatine Kinase 180, Troponin I < 0.01, Total Protein 7.3, Albumin 4.4, Globulin 2.9, Albumin/Globulin Ratio 1.5 06/09/18 07:20: PT 12.0, INR 1.04, APTT 33.2 06/09/18 07:20: WBC 6.7, RBC 4.23, Hgb 12.9, Hct 38.3, MCV 90.5, MCH 30.5, MCHC 33.7, RDW 12.3, Plt Count 278, MPV 10.4, Gran % 56.2, Lymph % (Auto) 29.0, Stark % (Auto) 12.0 H, Eos % (Auto) 2.5, Baso % (Auto) 0.3, Gran # 3.76, Lymph # (Auto) 1.9, Stark # (Auto) 0.8 H, Eos # (Auto) 0.2, Baso # (Auto) 0.02 06/09/18 06:50: POC Glucose (mg/dL) 91 Vital Signs Temp Pulse Resp BP Pulse Ox 06/11/18 07:11 97.6 F 70 20 157/71 H 06/10/18 16:00 77 161/69 H 06/10/18 09:47 74 162/79 H 06/10/18 07:18 98.0 F 74 20 162/79 H 06/09/18 17:50 82 18 144/63 06/09/18 16:40 71 18 180/82 H 06/09/18 16:00 71 180/82 H 06/09/18 15:00 97.9 F 88 18 181/93 H 06/09/18 13:51 98.2 F 86 17 152/95 H 99 06/09/18 13:07 83 17 152/95 H 99 06/09/18 12:45 98.2 F 87 17 99 06/09/18 09:12 79 17 166/76 H 97 06/09/18 07:29 81 17 173/98 H 98 06/09/18 06:49 97.9 F 86 18 167/86 H 97 DSM 5 Symptoms Update: shortly patient is 83 year old female not known previous psychiatric history, patient was brought in by her family including her daughter who is pt's power of attorney general, as per report pt's neighbor called pt's son tstating that the patient was wandering around in the streets. Pt was convinced that there were people in her house trying to daniel her, as per ED report pt's son found pt's house is in chaos and that the patient will not admit that she did this to her own apartment, pt was refusing to take all of her medications, was refusing to go and see doctors in the community, pt also has ? h/o of dementia, pt was refus ing her blood pressure medication or her psychiatric medications. pt was seen today Nursing station, hygiene is much better, patient wears pink bathrobe, patient appears to be confused again, but more comfortable, pt is less paranoid than before, was not preoccupied with her family "trying to kick me out from my house". 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 as per RN report pt was seeing spiders, but no agitation. patient tolerates medications well, no side effects observed or reported, aims 0, no EPS. Discussed with neurology team, Namenda was started. discussed with internal medicine team, antibiotic started for urinary tract infection discussed with pt's POA daughter yesterday, see notes for more detailed information. DSM 5 Diagnosis: psychosis NOS Rule out dementia with psychosis Rule out delirium Medication Change: Yes (seroquel was changed to 4pm) Medical Record Reviewed: Yes Mental Status Examination - Cognitive Function Orientation: Person Memory: Impaired Attention: Poor Concentration: Poor Association: Loose Fund of Knowledge: Poor - Mood Mood: Depressed, Anxious - Affect Affect: Constricted (irritable and annoyed), Flat - Formal Thought Process Formal Thought Process: Hallucinations, Delusions, Paranoia, Loosening of associations, Circumstantial - Suicidal Ideation Suicidal Ideation: No - Homicidal Ideation Homicidal Ideation: No Goal/Treatment Plan - Goal/Treatment Plan Need for Continued Stay: Remain at risks for inpatient hospitalization, Severe depression anxiety, Discharge may exacerbated symptoms, Severe functional impairment Progress Toward Problem(s) and Goals/Treatment Plan: Milieu/structure/supportive therapy Medical consult called neurology consult called SW consultation for discharge plan and social issues Med management Seroquel 50 mg 4pm and nighttime for psychosis Family involvement, discussed with pt's POA, risk, benefits, alternatives of medication as well as treatment plan antibiotic started for urinary tract infec tion discussed with POA Follow up on labs Will monitor closely Pt was educated about risk/benefits and alternatives of medications, coping strategies (safety plan, suicide prevention), relapse prevention, importance of follow up with psychiatrist and therapist, stay away from drugs/alcohol/smoking the rest of the medications as per medical team: Aspirin [Radha Genuine Aspirin] 81 mg PO DAILY Losartan/Hydrochlorothiazide [Losartan-Hctz 100-12.5 mg Tab] 1 tab PO DAILY amLODIPine [Norvasc] 5 mg PO DAILY antibiotics for UTI Estimated Date of D/C: 06/16/18
[2018-06-14] MEDS: Cefpodoxime (Vantin) 100 mg Tab PO SCH ×4 (06:41→18:30)
--- NOTE | 2018-06-14 12:49 | PCM.PYCHPN ---
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 Medical Problems: see HPI she was seen by medical team, consult appreciated Diagnostic Results: 06/09/18 07:20 06/09/18 07:20 Lab Results 06/10/18 07:15: RPR Nonreactive 06/10/18 07:15: TSH 3rd Generation 4.34 06/10/18 07:15: Fasting Glucose 83, Triglycerides 82, Cholesterol 237 H, LDL Cholesterol Direct 125, HDL Cholesterol 67 H 06/09/18 08:30: Ammonia < 9 L 06/09/18 08:20: Urine Opiates Screen Negative, Urine Methadone Screen Negative, Ur Barbiturates Screen Negative, Ur Phencyclidine Scrn Negative, Ur Amphetamines Screen Negative, U Benzodiazepines Scrn Negative, U Oth Cocaine Metabols Negative, U Cannabinoids Screen Negative 06/09/18 08:18: Urine Color Yellow, Urine Appearance Clear, Urine pH 6.5, Ur Specific [place] 1.010, Urine Protein Negative, Urine Glucose (UA) Negative, Urine Ketones Negative, Urine Blood Small H, Urine Nitrate Negative, Urine Bilirubin Negative, Urine Urobilinogen 0.2, Ur Leukocyte Esterase Moderate H, Urine RBC 5 - 10, Urine WBC 20 - 25, Ur Epithelial Cells 4 - 5, Amorphous Sediment Few, Urine Bacteria Many 06/09/18 07:20: Salicylates < 1 L, Acetaminophen < 10.0 L 06/09/18 07:20: TSH 3rd Generation 3.95, Alcohol, Quantitative < 10 06/09/18 07:20: Sodium 140, Potassium 3.6, Chloride 104, Carbon Dioxide 27, Anion Gap 13, BUN 12, Creatinine 0.6 L, Est GFR ( Amer) > 60, Est GFR (Non-Af Amer) > 60, Random Glucose 93, Calcium 9.2, Phosphorus 3.6, Magnesium 2.1, Total Bilirubin 0.5, AST 32, ALT 26, Alkaline Phosphatase 54, Lactate Dehydrogenase 585, Total Creatine Kinase 180, Troponin I < 0.01, Total Protein 7.3, Albumin 4.4, Globulin 2.9, Albumin/Globulin Ratio 1.5 06/09/18 07:20: PT 12.0, INR 1.04, APTT 33.2 06/09/18 07:20: WBC 6.7, RBC 4.23, Hgb 12.9, Hct 38.3, MCV 90.5, MCH 30.5, MCHC 33.7, RDW 12.3, Plt Count 278, MPV 10.4, Gran % 56.2, Lymph % (Auto) 29.0, [place] % (Auto) 12.0 H, Eos % (Auto) 2.5, Baso % (Auto) 0.3, Gran # 3.76, Lymph # (Auto) 1.9, [place] # (Auto) 0.8 H, Eos # (Auto) 0.2, Baso # (Auto) 0.02 06/09/18 06:50: POC Glucose (mg/dL) 91 Vital Signs Temp Pulse Resp BP Pulse Ox 06/11/18 07:11 97.6 F 70 20 157/71 H 06/10/18 16:00 77 161/69 H 06/10/18 09:47 74 162/79 H 06/10/18 07:18 98.0 F 74 20 162/79 H 06/09/18 17:50 82 18 144/63 06/09/18 16:40 71 18 180/82 H 06/09/18 16:00 71 180/82 H 06/09/18 15:00 97.9 F 88 18 181/93 H 06/09/18 13:51 98.2 F 86 17 152/95 H 99 06/09/18 13:07 83 17 152/95 H 99 06/09/18 12:45 98.2 F 87 17 99 06/09/18 09:12 79 17 166/76 H 97 06/09/18 07:29 81 17 173/98 H 98 06/09/18 06:49 97.9 F 86 18 167/86 H 97 DSM 5 Symptoms Update: shortly patient is 83 year old female not known previous psychiatric history, patient was brought in by her family including her daughter who is pt's power of deputy county attorney, as per report pt's neighbor called pt's son tstating that the patient was wandering around in the streets. Pt was convinced that there were people in her house trying to daniel her, as per ED report pt's son found pt's house is in chaos and that the patient will not admit that she did this to her own apartment, pt was refusing to take all of her medications, was refusing to go and see doctors in the community, pt also has ? h/o of dementia, pt was refusing her blood pressure medication or her psychiatric medications. pt was seen today at the dining area, patient observed eating, patient still confused, was more pleasant and comfortable, patient thinks that she is in her own house, transient visual hallucinations, patient was asking staff who is laying in her bed but obviously nobody was laying in her bed. own syndrome, morning dose of Seroquel was switched to 4pm with good response. as per RN report pt was seeing spiders, but no agitation. patient tolerates med ications well, no side effects observed or reported, aims 0, no EPS. Discussed with neurology team, Namenda was started. discussed with internal medicine team, antibiotic started for urinary tract infection discussed with pt's POA daughter yesterday, see notes for more detailed information. DSM 5 Diagnosis: psychosis NOS Rule out dementia with psychosis Rule out delirium Medication Change: Yes (seroquel increased) Medical Record Reviewed: Yes Mental Status Examination - Cognitive Function Orientation: Person Memory: Impaired Attention: Poor Concentration: Poor Association: Loose Fund of Knowledge: Poor - Mood Mood: Depressed, Anxious - Affect Affect: Constricted (irritable and annoyed), Flat - Formal Thought Process Formal Thought Process: Hallucinations, Delusions, Paranoia, Loosening of associations, Circumstantial - Suicidal Ideation Suicidal Ideation: No - Homicidal Ideation Homicidal Ideation: No Goal/Treatment Plan - Goal/Treatment Plan Need for Continued Stay: Remain at risks for inpatient hospitalization, Severe depression anxiety, Discharge may exacerbated symptoms, Severe functional impairment Progress Toward Problem(s) and Goals/Treatment Plan: Milieu/structure/supportive therapy Medical consult called neurology consult called SW consultation for discharge plan and social issues Med management Seroquel 50 mg 4pm and nighttime for psychosis Family involvement, discussed with pt's POA, risk, benefits, alternatives of medication as well as treatment plan antibiotic started for urinary tract infection discussed with POA Follow up on labs Will monitor closely Pt was educated about risk/benefits and alternatives of medications, coping strategies (safety plan, suicide prevention), relapse prevention, importance of follow up with psychiatrist and therapist, stay away from drugs/alcohol/smoking the rest of the medications as per medical team: Aspirin [Radha Genuine Aspirin] 81 mg PO DAILY Losartan/Hydrochlorothiazide [Losartan-Hctz 100-12.5 mg Tab] 1 tab PO DAILY amLODIPine [Norvasc] 5 mg PO DAILY antibiotics for UTI, another UA and urine c/s ordered, on June 12 it was not collected. Estimated Date of D/C: 06/16/18
[2018-06-14 19:38] LABS: URINE BILIRUBIN NEGATIVE (NEGATIVE); URINE BLOOD TRACE-INTACT (NEGATIVE); URINE GLUCOSE (UA) NEGATIVE (NEGATIVE); URINE LEUKOCYTE ESTERASE SMALL Leu/uL (NEGATIVE); URINE PROTEIN TRACE mg/dL (<30 mg/dL); URINE UROBILINOGEN 0.2 E.U./dL (<1 E.U./dL)
[2018-06-14 19:41] LABS: URINE APPEARANCE CLEAR (CLEAR); URINE COLOR YELLOW (YELLOW)
[2018-06-14 21:32] LABS: BASO # 0.01 K/mm3 (0.0-2.0); BASO % 0.1 % (0.0-3.0); EOS # 0.1 (0.0-0.7); GRAN # 5.3 (1.4-6.5); GRAN % 75.4 % (50.0-68.0); HEMOGLOBIN 12.5 g/dL (12.0-16.0); LYMPH # 1.1 (1.2-3.4); LYMPH % 15.4 % (22.0-35.0); MEAN CELL VOLUME 87.6 fl (80.0-105.0); MEAN CORPUSCULAR HEMOGLOBIN 30.3 pg (25.0-35.0); MEAN CORPUSCULAR HGB CONC 34.6 g/dl (31.0-37.0); MEAN PLATELET VOLUME 9.7 fl (7.0-11.0); MONO # 0.6 (0.1-0.6); MONO % 8.1 % (1.0-6.0); RBC 4.12 10^6/uL (3.5-6.1); RED CELL DISTRIBUTION WIDTH 12.2 % (11.5-14.5)
[2018-06-14 21:42] LABS: ALB/GLOB RATIO 1.4 (1.1-1.8); ALT/SGPT 23 U/L (7-56); AST/SGOT 39 U/L (14-36); BLOOD UREA NITROGEN 17 mg/dL (7-21); CALCIUM 8.9 mg/dL (8.4-10.5); GFR NON-AFRICAN AMERICAN > 60
--- NOTE | 2018-06-14 22:50 | PCM.FALL ---
<Harpreet Sanderson - Last Filed: 06/14/18 22:35> Post Fall Progress Note - Post Fall Fall Date: 06/14/18 Fall Time: 20:15 Description of Fall: Mechanical per patient, unwitnessed in bathroom. - Post Fall Exam Vital Sign: Temp Pulse Resp BP Pulse Ox 97.5 F L 63 20 141/64 99 06/14/18 07:03 06/14/18 07:03 06/14/18 07:03 06/14/18 09:47 06/09/18 13:51 Skull Exam: Negative for: Scalp wound, Scalp hematoma, Scalp depression Eye Exam: Positive for: Pupils equal, Pupils reactive Ear Exam: Negative for: Discharge, Bleeding Nose Exam: Negative for: Discharge, Bleeding Skin Exam: Negative for: Lacerations, Bruising Mouth Exam: Negative for: Tongue bitten, Teeth dislodge Neck Exam: Negative for: Tenderness Spinal Exam: Positive for: Tenderness (lumbar spine) Chest Exam: Negative for: Difficulty breathing Abdomen Exam: Negative for: Tenderness Pelvic Exam: Negative for: Tenderness, Hematuria Arm Exam: Negative for: Deformity Leg Exam: Negative for: Deformity Impression/Plan: Harpreet Sanderson, PGY-1 Post-Fall Note for Hospitalist Service Code Star was called at 8:15 pm for 83 y.o. F, at which point patient was promptly evaluated with attending. Patient was found in bathroom. Patient describes a mechanical fall in which she slipped backward, fell squarely on her sacral area and reports banging the back of her head. Patient denies chest pain, shortness of breath, LOC, tongue biting, urinary or bowel incontinence, dizziness, feeling faint. No paraspinal tenderness to cervical spine, hematomas or abrasions to the scalp appreciated. Paraspinal tenderness elicited in lumbar spine. Stat orders of CT head without contrast, lumbosacral x-ray, neurochecks, 1:1 observation, as well as CBC and CMP were done. Will continue to monitor results as they are completed. Patient seen and case discussed with Dr. Chang, attending. <Vijay Chang - Last Filed: 06/15/18 04:47> Post Fall Progress Note - Post Fall Exam Vital Sign: Temp Pulse Resp BP Pulse Ox 97.5 F L 63 20 141/64 99 06/14/18 07:03 06/14/18 07:03 06/14/18 07:03 06/14/18 09:47 06/09/18 13:51 Attending/Attestation - Attestation I have personally seen and examined this patient.: Yes I have fully participated in the care of the patient.: Yes I have reviewed all pertinent clinical information, including history, physical exam and plan: Yes
[2018-06-15] MEDS: Cefpodoxime (Vantin) 100 mg Tab PO SCH ×2 (07:22→19:13)
--- NOTE | 2018-06-15 08:51 | CT ---
Date of service: 06/14/2018 PROCEDURE: CT HEAD WITHOUT CONTRAST. HISTORY: fall COMPARISON: 06/09/2018 TECHNIQUE: Axial computed tomography images were obtained through the head/brain without intravenous contrast. Radiation dose: Total exam DLP = 1027.81 mGy-cm. This CT exam was performed using one or more of the following dose reduction techniques: Automated exposure control, adjustment of the mA and/or kV according to patient size, and/or use of iterative reconstruction technique. FINDINGS: HEMORRHAGE: No intracranial hemorrhage. BRAIN: No mass effect or edema. Patchy and confluent deep/subcortical and periventricular chronic periventricular white matter ischemic change. No evidence of acute infarct. VENTRICLES: Unremarkable. No hydrocephalus. CALVARIUM: Unremarkable. PARANASAL SINUSES: Unremarkable as visualized. No significant inflammatory changes. MASTOID AIR CELLS: Unremarkable as visualized. No inflammatory changes. OTHER FINDINGS: None. IMPRESSION: Moderate chronic and deep/subcortical periventricular white matter ischemic change. No intracranial mass, hemorrhage or evidence of acute infarct. The preliminary findings for this examination were reported by [facility] at 9:02 p.m. on 06/14/2018. There is concurrence of this report with the preliminary findings.
--- NOTE | 2018-06-15 09:45 | RAD ---
Date of service: 06/14/2018 PROCEDURE: Radiographs of the Lumbar Spine. HISTORY: fall COMPARISON: No prior. FINDINGS: BONES: Normal alignment. No listhesis. No fracture. DISC SPACES: Narrowing of the L5-S1 disc space with marginal osteophytes and mild subchondral sclerosis, consistent with degenerative disc disease. The remaining intervertebral disc spaces are maintained in height. OTHER FINDINGS: None. IMPRESSION: No fracture/dislocation. Degenerative disc disease at L5-S1.
--- NOTE | 2018-06-16 08:25 | PN ---
DATE: 06/15/[address] Salas. SUBJECTIVE: Chart reviewed and case discussed with nursing. The patient is an 83-year-old white female, who had been brought to the hospital by her family including her daughter who reportedly has a power of assistant city attorney. A present precipitant to the patient's hospitalization was that the patient reportedly was found wandering around the streets and was convinced that there were people in her house trying to daniel her. She also reportedly left her house in a state of chaos with her denying that she had herself inflicted this on her apartment. She also was refusing to take her medication and refusing to see doctors. She reportedly has a history of dementia. The patient was seen in the community dining room, appeared to be confused. She gets easily restless and anxious. She requires a one-on-one sitter for a fall risk of. She reportedly is exhibiting hallucinations and takes and see things on the floor. She is disoriented to place and time and generally is uncooperative. I have started the patient on p.r.n. dose of Ativan to help away her anxiety. Her other medications include Namenda 10 mg daily, Risperdal 0.25 mg at bedtime, this having been started today. She is also on Norvasc 10 mg daily, Plavix 75 mg daily, hydrochlorothiazide 12.5 mg daily, Cozaar 100 mg daily. Blood chemistry yesterday showed lowered sodium of 127 and elevated AST of 39. A CBC and differential taken yesterday were within normal limits. PHYSICAL EXAMINATION: VITAL SIGNS: Today showed blood pressure 163/62, pulse 89, temperature 98.3, respiratory rate 18. Bahman Booker MD/ PhD
--- NOTE | 2018-06-16 16:06 | PCM.PYCHPN ---
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 Medical Problems: see HPI she was seen by medical team, consult appreciated Diagnostic Results: 06/09/18 07:20 06/09/18 07:20 Lab Results 06/10/18 07:15: RPR Nonreactive 06/10/18 07:15: TSH 3rd Generation 4.34 06/10/18 07:15: Fasting Glucose 83, Triglycerides 82, Cholesterol 237 H, LDL Cholesterol Direct 125, HDL Cholesterol 67 H 06/09/18 08:30: Ammonia < 9 L 06/09/18 08:20: Urine Opiates Screen Negative, Urine Methadone Screen Negative, Ur Barbiturates Screen Negative, Ur Phencyclidine Scrn Negative, Ur Amphetamines Screen Negative, U Benzodiazepines Scrn Negative, U Oth Cocaine Metabols Neg ative, U Cannabinoids Screen Negative 06/09/18 08:18: Urine Color Yellow, Urine Appearance Clear, Urine pH 6.5, Ur Specific [place] 1.010, Urine Protein Negative, Urine Glucose (UA) Negative, Urine Ketones Negative, Urine Blood Small H, Urine Nitrate Negative, Urine Bilirubin Negative, Urine Urobilinogen 0.2, Ur Leukocyte Esterase Moderate H, Urine RBC 5 - 10, Urine WBC 20 - 25, Ur Epithelial Cells 4 - 5, Amorphous Sedime nt Few, Urine Bacteria Many 06/09/18 07:20: Salicylates < 1 L, Acetaminophen < 10.0 L 06/09/18 07:20: TSH 3rd Generation 3.95, Alcohol, Quantitative < 10 06/09/18 07:20: Sodium 140, Potassium 3.6, Chloride 104, Carbon Dioxide 27, Anion Gap 13, BUN 12, Creatinine 0.6 L, Est GFR ( Amer) > 60, Est GFR (Non-Af Amer) > 60, Random Glucose 93, Calcium 9.2, Phosphorus 3.6, Magnesium 2.1, Total Bilirubin 0.5, AST 32, ALT 26, Alkaline Phosphatase 54, Lactate Dehydrogenase 585, Total Creatine Kinase 180, Troponin I < 0.01, Total Protein 7.3, Albumin 4.4, Globulin 2.9, Albumin/Globulin Ratio 1.5 06/09/18 07:20: PT 12.0, INR 1.04, APTT 33.2 06/09/18 07:20: WBC 6.7, RBC 4.23, Hgb 12.9, Hct 38.3, MCV 90.5, MCH 30.5, MCHC 33.7, RDW 12.3, Plt Count 278, MPV 10.4, Gran % 56.2, Lymph % (Auto) 29.0, [place] % (Auto) 12.0 H, Eos % (Auto) 2.5, Baso % (Auto) 0.3, Gran # 3.76, Lymph # (Auto) 1.9, [place] # (Auto) 0.8 H, Eos # (Auto) 0.2, Baso # (Auto) 0.02 06/09/18 06:50: POC Glucose (mg/dL) 91 Vital Signs Temp Pulse Resp BP Pulse Ox 06/11/18 07:11 97.6 F 70 20 157/71 H 06/10/18 16:00 77 161/69 H 06/10/18 09:47 74 162/79 H 06/10/18 07:18 98.0 F 74 20 162/79 H 06/09/18 17:50 82 18 144/63 06/09/18 16:40 71 18 180/82 H 06/09/18 16:00 71 180/82 H 06/09/18 15:00 97.9 F 88 18 181/93 H 06/09/18 13:51 98.2 F 86 17 152/95 H 99 06/09/18 13:07 83 17 152/95 H 99 06/09/18 12:45 98.2 F 87 17 99 06/09/18 09:12 79 17 166/76 H 97 06/09/18 07:29 81 17 173/98 H 98 06/09/18 06:49 97.9 F 86 18 167/86 H 97 DSM 5 Symptoms Update: shortly patient is 83 year old female not known previous psychiatric history, patient was brought in by her family including her daughter who is pt's power of workers compensation defense attorney, as per report pt's neighbor called pt's son tstating that the patient was wandering around in the streets. Pt was convinced that there were people in her house trying to daniel her, as per ED report pt's son found pt's house is in chaos and that the patient will not admit that she did this to her own apartment, pt was refusing to take all of her medications, was refusing to go and see doctors in the community, pt also has ? h/o of dementia, pt was refusing her blood pressure medication or her psychiatric medications. pt was seen today in her room, pt is on 1:1, pt appears to be confused, as per staff pt sees things such as spiders and water. no agitation or aggression. pt fell on 06/14/18, since that time pt is on 1:1. most likely pt needs custodial placement. patient was seen by Dr. Booker JuneJune 15 2018, Seroquel was discontinued, Risperdal started, we'll continue that. patient tolerates medications well, no side effects observed or reported, aims 0, no EPS. Discussed with neurology team, Namenda was started. discussed with internal medicine team, antibiotic started for urinary tract infection discussed with pt's POA daughter yesterday, see notes for more detailed information. DSM 5 Diagnosis: psychosis NOS Rule out dementia with psychosis Rule out delirium Medication Change: Yes (seroquel increased) Medical Record Reviewed: Yes Mental Status Examination - Cognitive Function Orientation: Person Memory: Impaired Attention: Poor Concentration: Poor Association: Loose Fund of Knowledge: Poor - Mood Mood: Depressed, Anxious - Affect Affect: Constricted (irritable and annoyed), Flat - Formal Thought Process Formal Thought Process: Hallucinations, Delusions, Paranoia, Loosening of a ssociations, Circumstantial - Suicidal Ideation Suicidal Ideation: No - Homicidal Ideation Homicidal Ideation: No Goal/Treatment Plan - Goal/Treatment Plan Need for Continued Stay: Remain at risks for inpatient hospitalization, Severe depression anxiety, Discharge may exacerbated symptoms, Severe functional impairment Progress Toward Problem(s) and Goals/Treatment Plan: Milieu/structure/supportive therapy Medical consult called neurology consult called SW consultation for discharge plan and social issues Med management Seroquel was discontinued by Dr. Booker yesterday Risperdal 0.25 mg at the nighttime for psychosis was started Family involvement, discussed with pt's POA, risk, benefits, alternatives of medication as well as treatment plan antibiotic started for urinary tract infection discussed with POA Follow up on labs Will monitor closely Pt was educated about risk/benefits and alternatives of medications, coping strategies (safety plan, suicide prevention), relapse prevention, importance of follow up with psychiatrist and therapist, stay away from drugs/alcohol/smoking the rest of the medications as per medical team: Aspirin [Radha Genuine Aspirin] 81 mg PO DAILY Losartan/Hydrochlorothiazide [Losartan-Hctz 100-12.5 mg Tab] 1 tab PO DAILY amLODIPine [Norvasc] 5 mg PO DAILY antibiotics for UTI, another UA and urine c/s ordered, on June 12 it was not collected. Estimated Date of D/C: 06/19/18
[2018-06-16] MEDS ORDERED: Magnesium Hydroxide Susp 30 ml UD PO PRN (18:16)
[2018-06-16] MEDS ORDERED: Alum-Mag Hydrox-Simethicone Susp (30 mL) PO PRN (18:16)
--- NOTE | 2018-06-17 17:21 | PCM.PYCHPN ---
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 Medical Problems: see HPI she was seen by medical team, consult appreciated Diagnostic Results: 06/09/18 07:20 06/09/18 07:20 Lab Results 06/10/18 07:15: RPR Nonreactive 06/10/18 07:15: TSH 3rd Generation 4.34 06/10/18 07:15: Fasting Glucose 83, Triglycerides 82, Cholesterol 237 H, LDL Cholesterol Direct 125, HDL Cholesterol 67 H 06/09/18 08:30: Ammonia < 9 L 06/09/18 08:20: Urine Opiates Screen Negative, Urine Methadone Screen Negative, Ur Barbiturates Screen Negative, Ur Phencyclidine Scrn Negative, Ur Amphetamines Screen Negative, U Benzodiazepines Scrn Negative, U Oth Cocaine Metabols Negative, U Cannabinoids Screen Negative 06/09/18 08:18: Urine Color Yellow, Urine Appearance Clear, Urine pH 6.5, Ur Specific [place] 1.010, Urine Protein Negative, Urine Glucose (UA) Negative, Urine Ketones Negative, Urine Blood Small H, Urine Nitrate Negative, Urine Bilirubin Negative, Urine Urobilinogen 0.2, Ur Leukocyte Esterase Moderate H, Urine RBC 5 - 10, Urine WBC 20 - 25, Ur Epithelial Cells 4 - 5, Amorphous Sediment Few, Urine Bacteria Many 06/09/18 07:20: Salicylates < 1 L, Acetaminophen < 10.0 L 06/09/18 07:20: TSH 3rd Generation 3.95, Alcohol, Quantitative < 10 06/09/18 07:20: Sodium 140, Potassium 3.6, Chloride 104, Carbon Dioxide 27, Anion Gap 13, BUN 12, Creatinine 0.6 L, Est GFR ( Amer) > 60, Est GFR (Non-Af Amer) > 60, Random Glucose 93, Calcium 9.2, Phosphorus 3.6, Magnesium 2.1, Total Bilirubin 0.5, AST 32, ALT 26, Alkaline Phosphatase 54, Lactate Dehydrogenase 585, Total Creatine Kinase 180, Troponin I < 0.01, Total Protein 7.3, Albumin 4.4, Globulin 2.9, Albumin/Globulin Ratio 1.5 10/02/18 07:20: PT 12.0, INR 1.04, APTT 33.2 06/09/18 07:20: WBC 6.7, RBC 4.23, Hgb 12.9, Hct 38.3, MCV 90.5, MCH 30.5, MCHC 33.7, RDW 12.3, Plt Count 278, MPV 10.4, Gran % 56.2, Lymph % (Auto) 29.0, [place] % (Auto) 12.0 H, Eos % (Auto) 2.5, Baso % (Auto) 0.3, Gran # 3.76, Lymph # (Auto) 1.9, [place] # (Auto) 0.8 H, Eos # (Auto) 0.2, Baso # (Auto) 0.02 06/09/18 06:50: POC Glucose (mg/dL) 91 Vital Signs Temp Pulse Resp BP Pulse Ox 06/11/18 07:11 97.6 F 70 20 157/71 H 06/10/18 16:00 77 161/69 H 06/10/18 09:47 74 162/79 H 06/10/18 07:18 98.0 F 74 20 162/79 H 06/09/18 17:50 82 18 144/63 06/09/18 16:40 71 18 180/82 H 06/09/18 16:00 71 180/82 H 06/09/18 15:00 97.9 F 88 18 181/93 H 06/09/18 13:51 98.2 F 86 17 152/95 H 99 06/09/18 13:07 83 17 152/95 H 99 06/09/18 12:45 98.2 F 87 17 99 06/09/18 09:12 79 17 166/76 H 97 06/09/18 07:29 81 17 173/98 H 98 06/09/18 06:49 97.9 F 86 18 167/86 H 97 DSM 5 Symptoms Update: shortly patient is 83 year old female not known previous psychiatric history, patient was brought in by her family including her daughter who is pt's power of optical goods drill operator, as per report pt's neighbor called pt's son tstating that the patient was wandering around in the streets. Pt was convinced that there were people in her house trying to daniel her, as per ED report pt's son found pt's house is in chaos and that the patient will not admit that she did this to her own apartment, pt was refusing to take all of her medications, was refusing to go and see doctors in the community, pt also has ? h/o of dementia, pt was refusing her blood pressure medication or her psychiatric medications. pt was seen today in her room, pt is on 1:1, pt appears to be confused, as per staff pt sees things such as spiders and water, pt was more irritable today, said to this typewriter repairer "stop following me, I do not live here". pt was agitated later on, risperdal increased, gave stat dose. pt fell on 06/14/18, since that time pt is on 1:1. most likely pt needs assisted placement. patient was seen by Dr. Booker JuneJune 15 2018, Seroquel was discontinued, Risperdal started, we'll continue that. patient tolerates medications well, no side effects observed or reported, aims 0, no EPS. Discussed with neurology team, Namenda was started. discussed with internal medicine team, antibiotic started for urinary tract infection discussed with pt's POA daughter yesterday, see notes for more detailed information. DSM 5 Diagnosis: psychosis NOS Rule out dementia with psychosis Rule out delirium Medication Change: Yes (Risperdal increased) Medical Record Reviewed: Yes Consults ordered or reviewed: medical consultation appreciated Neurology consultation appreciated Mental Status Examination - Cognitive Function Orientation: Person Memory: Impaired Attention: Poor Concentration: Poor Association: Loose Fund of Knowledge: Poor - Mood Mood: Depressed, Anxious - Affect Affect: Constricted (irritable and annoyed), Flat - Formal Thought Process Formal Thought Process: Hallucinations, Delusions, Paranoia, Loosening of associations, Circumstantial - Suicidal Ideation Suicidal Ideation: No - Homicidal Ideation Homicidal Ideation: No Goal/Treatment Plan - Goal/Treatment Plan Need for Continued Stay: Remain at risks for inpatient hospitalization, Severe depression anxiety, Discharge may exacerbated symptoms, Severe functional impairment Progress Toward Problem(s) and Goals/Treatment Plan: Milieu/structure/supportive therapy Medical consult called neurology consult called consultation for discharge plan and social issues Med management Seroquel was discontinued by Dr. Booker yesterday Risperdal 0.5 mg at the at the morning and at the nighttime for psychosis Family involvement, discussed with pt's POA, risk, benefits, alternatives of medication as well as treatment plan antibiotic started for urinary tract infection discussed with POA Follow up on labs Will monitor closely Pt was educated about risk/benefits and alternatives of medications, coping strategies (safety plan, suicide prevention), relapse prevention, importance of follow up with psychiatrist and therapist, stay away from drugs/alcohol/smoking the rest of the medications as per medical team: Aspirin [Radha Genuine Aspirin] 81 mg PO DAILY Losartan/Hydrochlorothiazide [Losartan-Hctz 100-12.5 mg Tab] 1 tab PO DAILY amLODIPine [Norvasc] 5 mg PO DAILY antibiotics for UTI, another UA and urine c/s ordered, leukocyte esterase small, called for medical consultation, Dr. Hearn evaluated patient today for electrolytes disbalance as well as possible urinary tract infection we'll follow ddevices Estimated Date of D/C: 06/19/18
[2018-06-18 08:27] LABS: BLOOD UREA NITROGEN 11 mg/dL (7-21); CALCIUM 8.9 mg/dL (8.4-10.5); GFR NON-AFRICAN AMERICAN > 60
--- NOTE | 2018-06-18 15:09 | PCM.PYCHPN ---
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 Medical Problems: see HPI she was seen by medical team, consult appreciated Diagnostic Results: 06/09/18 07:20 06/09/18 07:20 Lab Results 06/10/18 07:15: RPR Nonreactive 06/10/18 07:15: TSH 3rd Generation 4.34 06/10/18 07:15: Fasting Glucose 83, Triglycerides 82, Cholesterol 237 H, LDL Cholesterol Direct 125, HDL Cholesterol 67 H 06/09/18 08:30: Ammonia < 9 L 06/09/18 08:20: Urine Opiates Screen Negative, Urine Methadone Screen Negative, Ur Barbiturates Screen Negative, Ur Phencyclidine Scrn Negative, Ur Amphetamines Screen Negative, U Benzodiazepines Scrn Negative, U Oth Cocaine Metabols Negative, U Cannabinoids Screen Negative 06/09/18 08:18: Urine Color Yellow, Urine Appearance Clear, Urine pH 6.5, Ur Specific [place] 1.010, Urine Protein Negative, Urine Glucose (UA) Negative, Urine Ketones Negative, Urine Blood Small H, Urine Nitrate Negative, Urine Bilirubin Negative, Urine Urobilinogen 0.2, Ur Leukocyte Esterase Moderate H, Urine RBC 5 - 10, Urine WBC 20 - 25, Ur Epithelial Cells 4 - 5, Amorphous Sediment Few, Urine Bacteria Many 06/09/18 07:20: Salicylates < 1 L, Acetaminophen < 10.0 L 06/09/18 07:20: TSH 3rd Generation 3.95, Alcohol, Quantitative < 10 06/09/18 07:20: Sodium 140, Potassium 3.6, Chloride 104, Carbon Dioxide 27, Anion Gap 13, BUN 12, Creatinine 0.6 L, Est GFR ( Amer) > 60, Est GFR (Non-Af Amer) > 60, Random Glucose 93, Calcium 9.2, Phosphorus 3.6, Magnesium 2.1, Total Bilirubin 0.5, AST 32, ALT 26, Alkaline Phosphatase 54, Lactate Dehydrogenase 585, Total Creatine Kinase 180, Troponin I < 0.01, Total Protein 7.3, Albumin 4.4, Globulin 2.9, Albumin/Globulin Ratio 1.5 06/09/18 07:20: PT 12.0, INR 1.04, APTT 33.2 06/09/18 07:20: WBC 6.7, RBC 4.23, Hgb 12.9, Hct 38.3, MCV 90.5, MCH 30.5, MCHC 33.7, RDW 12.3, Plt Count 278, MPV 10.4, Gran % 56.2, Lymph % (Auto) 29.0, [place] % (Auto) 12.0 H, Eos % (Auto) 2.5, Baso % (Auto) 0.3, Gran # 3.76, Lymph # (Auto) 1.9, [place] # (Auto) 0.8 H, Eos # (Auto) 0.2, Baso # (Auto) 0.02 06/09/18 06:50: POC Glucose (mg/dL) 91 Vital Signs Temp Pulse Resp BP Pulse Ox 06/11/18 07:11 97.6 F 70 20 157/71 H 06/10/18 16:00 77 161/69 H 06/10/18 09:47 74 162/79 H 06/10/18 07:18 98.0 F 74 20 162/79 H 06/09/18 17:50 82 18 144/63 06/09/18 16:40 71 18 180/82 H 06/09/18 16:00 71 180/82 H 06/09/18 15:00 97.9 F 88 18 181/93 H 06/09/18 13:51 98.2 F 86 17 152/95 H 99 06/09/18 13:07 83 17 152/95 H 99 06/09/18 12:45 98.2 F 87 17 99 06/09/18 09:12 79 17 166/76 H 97 06/09/18 07:29 81 17 173/98 H 98 06/09/18 06:49 97.9 F 86 18 167/86 H 97 DSM 5 Symptoms Update: shortly patient is 83 year old female not known previous psychiatric history, patient was brought in by her family including her daughter who is pt's power of city attorney, as per report pt's neighbor called pt's son tstating that the patient was wandering around in the streets. Pt was convinced that there were people in her house trying to daniel her, as per ED report pt's son found pt's house is in chaos and that the patient will not admit that she did this to her own apartment, pt was refusing to take all of her medications, was refusing to go and see doctors in the community, pt also has ? h/o of dementia, pt was refusing her blood pressure medication or her psychiatric medications. pt was seen today in the dinning area, pt is on 1:1, pt appears to be confused,but much calmer, patient is not aggressive or agitated but mostly confused. Family meeting took place today, treatment course was discussed in details, risk, benefits, alternatives discussed with the patient our off city attorney, discharge plan was discussed in details, please see psychiatric social worker supervisor notes for more detailed information. patient's family requested Dr. Rowe to be her primary care physician, this remote mortgage underwriter notified Dr. Rowe patient's family wants to have psychiatric in-home visit information about providers provided Family seems to be appreciative patient tolerates medications well, no side effects observed or reported, aims 0, no EPS. Discussed with neurology team, Namenda started. discussed with internal medicine team, antibiotic started for urinary tract infection, completed the course. DSM 5 Diagnosis: psychosis NOS Rule out dementia with psychosis Rule out delirium Medication Change: Yes (Risperdal increased yesterday) Medical Record Reviewed: Yes Mental Status Examination - Cognitive Function Orientation: Person Memory: Impaired Attention: Poor Concentration: Poor Association: Loose Fund of Knowledge: Poor - Mood Mood: Depressed, Anxious - Affect Affect: Constricted (irritable and annoyed), Flat - Formal Thought Process Formal Thought Process: Hallucinations, Delusions, Paranoia, Loosening of associations, Circumstantial - Suicidal Ideation Suicidal Ideation: No - Homicidal Ideation Homicidal Ideation: No Goal/Treatment Plan - Goal/Treatment Plan Need for Continued Stay: Remain at risks for inpatient hospitalization, Severe depression anxiety, Discharge may exacerbated symptoms, Severe functional impairment Progress Toward Problem(s) and Goals/Treatment Plan: Milieu/structure/supportive therapy Medical consult called neurology consult called SW consultation for discharge plan and social issues Med management Seroquel was discontinued by Dr. Booker yesterday Risperdal 0.5 mg at the at the morning and at the nighttime for psychosis Family involvement, discussed with pt's POA, risk, benefits, alternatives of medication as well as treatment plan antibiotic started for urinary tract inf ection discussed with POA during the family meeting 06/18/18 Follow up on labs Will monitor closely Pt's family/POA educated about risk/benefits and alternatives of medications, coping strategies (safety plan, suicide prevention), relapse prevention, importance of follow up with psychiatrist and therapist the rest of the medications as per medical team: Aspirin [Radha Genuine Aspirin] 81 mg PO DAILY Losartan/Hydrochlorothiazide [Losartan-Hctz 100-12.5 mg Tab] 1 tab PO DAILY amLODIPine [Norvasc] 5 mg PO DAILY discussed with 06/18/18 Na better PT ruth was called Estimated Date of D/C: 06/22/18
--- NOTE | 2018-06-18 16:51 | CP.PCM.CON ---
History of Present Illness - History of Present Illness History of Present Illness: Pt is an 83 yo who persented to the hosptial after being found wandering the streets. Pt has a signici Review of Systems - Review of Systems Review of Systems: a 12 point ROS was obtained and added to the HPI where appropriate Past Patient History - Infectious Disease Hx of Infectious Diseases: None - Tetanus Immunizations Tetanus Immunization: Unknown - Past Social History Smoking Status: Never Smoked - CARDIAC Hx Cardiac Disorders: Yes Hx Hypertension: Yes - PULMONARY Hx Tuberculosis: No - NEUROLOGICAL Hx Neurological Disorder: Yes Hx Dementia: Yes Hx Transient Ischemic Attacks (TIA): Yes - HEMATOLOGICAL/ONCOLOGICAL Hx Blood Transfusions: No Hx Blood Transfusion Reaction: No - GENITOURINARY/GYNECOLOGICAL Hx Sexually Transmitted Disorders: No - PSYCHIATRIC Hx Substance Use: No - SURGICAL HISTORY Hx Surgeries: No - ANESTHESIA Hx Anesthesia Reactions: No Hx Malignant Hyperthermia: No Meds Allergies/Adverse Reactions: Allergies Allergy/AdvReac Type Severity Reaction Status Date / Time No Known Allergies Allergy Verified 06/09/18 18:56 - Medications Medications: Current Medications Acetaminophen (Tylenol 325mg Tab) 650 mg PO Q4H PRN PRN Reason: Pain, moderate (4-7) Last Admin: 06/17/18 18:43 Dose: 650 mg Al Hydrox/Mg Hydrox/Simethicone (Maalox Plus 30 Ml) 30 ml PO DAILY PRN PRN Reason: Upset Stomach Amlodipine Besylate (Norvasc) 10 mg PO DAILY [facility] Last Admin: 06/18/18 09:52 Dose: 10 mg Clopidogrel Bisulfate (Plavix) 75 mg PO DAILY [facility] Last Admin: 06/18/18 09:52 Dose: 75 mg Hydralazine HCl (Apresoline) 10 mg PO Q6H PRN PRN Reason: Systolic Blood Pressure Lorazepam (Ativan) 0.5 mg PO Q4H PRN; Protocol PRN Reason: Anxiety Last Admin: 06/17/18 17:25 Dose: 0.5 mg Losartan Potassium (Cozaar) 100 mg PO DAILY [facility] Last Admin: 06/18/18 09:53 Dose: 100 mg Magnesium Hydroxide (Milk Of Magnesia) 30 ml PO DAILY PRN PRN Reason: Constipation Memantine (Namenda) 10 mg PO DAILY [facility] Last Admin: 06/18/18 09:53 Dose: 10 mg Risperidone (Risperdal Tab) 0.5 mg PO BID [facility]; Protocol Last Admin: 06/18/18 09:52 Dose: 0.5 mg Ziprasidone (Geodon Inj) 10 mg IM TID PRN; Protocol PRN Reason: severe agitaiton/psychosis Last Admin: 06/10/18 21:58 Dose: 10 mg Ziprasidone (Geodon Cap) 20 mg PO Q6H PRN; Protocol PRN Reason: psychosis/agitation Last Admin: 06/12/18 16:08 Dose: 20 mg Physical Exam - Head Exam Head Exam: ATRAUMATIC, NORMOCEPHALIC - Eye Exam Eye Exam: EOMI - ENT Exam ENT Exam: Mucous Membranes Moist - Respiratory Exam Respiratory Exam: Clear to Auscultation Bilateral, NORMAL BREATHING PATTERN. absent: Accessory Muscle Use, Wheezes, Respiratory Distress - Cardiovascular Exam Cardiovascular Exam: RRR, +S1, +S2. absent: Diastolic murmur, Systolic Murmur - GI/Abdominal Exam GI & Abdominal Exam: Normal Bowel Sounds, Soft. absent: Rebound, Tenderness - Extremities Exam Extremities exam: Positive for: full ROM, pedal pulses present. Negative for: calf tenderness - Neurological Exam Neurological exam: Alert - Skin Skin Exam: Dry, Intact, Warm Results - Vital Signs Recent Vital Signs: Last Vital Signs Temp 97.2 F L 06/18/18 07:00 Pulse 90 06/18/18 07:00 Resp 20 06/18/18 07:00 BP 130/64 06/18/18 09:52 Pulse Ox 99 06/09/18 13:51 - Labs Result Diagrams: 06/14/18 21:22 06/18/18 07:50 Labs: Laboratory Results - last 24 hr 06/18/18 07:50 Sodium 130 L Potassium 3.5 L Chloride 89 L Carbon Dioxide 29 Anion Gap 15 BUN 11 Creatinine 0.7 Est GFR ( Amer) > 60 Est GFR (Non-Af Amer) > 60 Random Glucose 104 Calcium 8.9 Assessment & Plan - Date & Time Date: 06/18/18 Time: 16:53
--- NOTE | 2018-06-18 17:56 | CP.PCM.PN ---
<Stan Du - Last Filed: 06/18/18 18:29> Subjective - Date & Time of Evaluation Date of Evaluation: 06/18/18 Time of Evaluation: 17:54 - Subjective Subjective: Pt seen and examined at bedside. Pt has no complaints at this time. Objective - Vital Signs/Intake and Output Vital Signs (last 24 hours): Temp Pulse Resp BP Pulse Ox 97.2 F L 90 20 130/64 99 06/18/18 07:00 06/18/18 07:00 06/18/18 07:00 06/18/18 09:52 06/09/18 13:51 - Medications Medications: Current Medications Acetaminophen (Tylenol 325mg Tab) 650 mg PO Q4H PRN PRN Reason: Pain, moderate (4-7) Last Admin: 06/17/18 18:43 Dose: 650 mg Al Hydrox/Mg Hydrox/Simethicone (Maalox Plus 30 Ml) 30 ml PO DAILY PRN PRN Reason: Upset Stomach Amlodipine Besylate (Norvasc) 10 mg PO DAILY [facility] Last Admin: 06/18/18 09:52 Dose: 10 mg Clopidogrel Bisulfate (Plavix) 75 mg PO DAILY [facility] Last Admin: 06/18/18 09:52 Dose: 75 mg Hydralazine HCl (Apresoline) 10 mg PO Q6H PRN PRN Reason: Systolic Blood Pressure Lorazepam (Ativan) 0.5 mg PO Q4H PRN; Protocol PRN Reason: Anxiety Last Admin: 06/17/18 17:25 Dose: 0.5 mg Losartan Potassium (Cozaar) 100 mg PO DAILY [facility] Last Admin: 06/18/18 09:53 Dose: 100 mg Magnesium Hydroxide (Milk Of Magnesia) 30 ml PO DAILY PRN PRN Reason: Constipation Memantine (Namenda) 10 mg PO DAILY [facility] Last Admin: 06/18/18 09:53 Dose: 10 mg Risperidone (Risperdal Tab) 0.5 mg PO BID [facility]; Protocol Last Admin: 06/18/18 09:52 Dose: 0.5 mg Ziprasidone (Geodon Inj) 10 mg IM TID PRN; Protocol PRN Reason: severe agitaiton/psychosis Last Admin: 06/10/18 21:58 Dose: 10 mg Ziprasidone (Geodon Cap) 20 mg PO Q6H PRN; Protocol PRN Reason: psychosis/agitation Last Admin: 06/12/18 16:08 Dose: 20 mg - Labs Labs: 06/14/18 21:22 06/18/18 07:50 PT 12.0 SECONDS (9.4-12.5) 06/09/18 07:20 INR 1.04 06/09/18 07:20 APTT 33.2 Seconds (25.1-36.5) 06/09/18 07:20 - Head Exam Head Exam: ATRAUMATIC, NORMOCEPHALIC - Eye Exam Eye Exam: EOMI - ENT Exam ENT Exam: Mucous Membranes Moist - Neck Exam Neck Exam: Full ROM - Respiratory Exam Respiratory Exam: Clear to Ausculation Bilateral, NORMAL BREATHING PATTERN. absent: Wheezes, Respiratory Distress - Cardiovascular Exam Cardiovascular Exam: RRR, +S1, +S2. absent: Diastolic murmur, Murmur - GI/Abdominal Exam GI & Abdominal Exam: Soft, Normal Bowel Sounds. absent: Distended - Extremities Exam Extremities Exam: Full ROM. absent: Pedal Edema - Neurological Exam Neurological Exam: Awake, CN II-XII Intact - Skin Skin Exam: Dry, Intact, Warm Assessment and Plan - Assessment and Plan (Free Text) Assessment: Patient is a 83 year old female with PMH of HTN, hyperlipidemia, dementia, TIA, ischemic cerebrovascular disease who was brought in to the ER yesterday for altered mental status. We have been consulted for hyponatremia. Plan: Hyponatremia - Na 127 and has improved to 130 - hold HCTZ - consider adding another agent if pt BP is not controlled Psychiatric Conditions - continue to follow with psychiatry Thank you for consulting us and allowing us to participate in this pt care. No further medical management is indicated at this time. Pt seen, examined, assessment and plan discussed with Dr Jasmin Du PGY1 <Ab Castellanos - Last Filed: 06/18/18 19:09> Objective - Vital Signs/Intake and Output Vital Signs (last 24 hours): Temp Pulse Resp BP Pulse Ox 97.2 F L 90 20 130/64 99 06/18/18 07:00 06/18/18 07:00 06/18/18 07:00 06/18/18 09:52 06/09/18 13:51 - Medications Medications: Current Medications Acetaminophen (Tylenol 325mg Tab) 650 mg PO Q4H PRN PRN Reason: Pain, moderate (4-7) Last Admin: 06/18/18 18:59 Dose: 650 mg Al Hydrox/Mg Hydrox/Simethicone (Maalox Plus 30 Ml) 30 ml PO DAILY PRN PRN Reason: Upset Stomach Amlodipine Besylate (Norvasc) 10 mg PO DAILY [facility] Last Admin: 06/18/18 09:52 Dose: 10 mg Clopidogrel Bisulfate (Plavix) 75 mg PO DAILY [facility] Last Admin: 06/18/18 09:52 Dose: 75 mg Hydralazine HCl (Apresoline) 10 mg PO Q6H PRN PRN Reason: Systolic Blood Pressure Lorazepam (Ativan) 0.5 mg PO Q4H PRN; Protocol PRN Reason: Anxiety Last Admin: 06/17/18 17:25 Dose: 0.5 mg Losartan Potassium (Cozaar) 100 mg PO DAILY [facility] Last Admin: 06/18/18 09:53 Dose: 100 mg Magnesium Hydroxide (Milk Of Magnesia) 30 ml PO DAILY PRN PRN Reason: Constipation Memantine (Namenda) 10 mg PO DAILY [facility] Last Admin: 06/18/18 09:53 Dose: 10 mg Risperidone (Risperdal Tab) 0.5 mg PO BID [facility]; Protocol Last Admin: 06/18/18 18:07 Dose: 0.5 mg Ziprasidone (Geodon Inj) 10 mg IM TID PRN; Protocol PRN Reason: severe agitaiton/psychosis Last Admin: 06/10/18 21:58 Dose: 10 mg Ziprasidone (Geodon Cap) 20 mg PO Q6H PRN; Protocol PRN Reason: psychosis/agitation Last Admin: 06/12/18 16:08 Dose: 20 mg - Labs Labs: 06/14/18 21:22 06/18/18 07:50 PT 12.0 SECONDS (9.4-12.5) 06/09/18 07:20 INR 1.04 06/09/18 07:20 APTT 33.2 Seconds (25.1-36.5) 06/09/18 07:20 Attending/Attestation - Attestation I have personally seen and examined this patient.: Yes I have fully participated in the care of the patient.: Yes I have reviewed all pertinent clinical information, including history, physical exam and plan: Yes Notes (Text): 06/18/18 19:06 Medicine follow up was requested today for hyponatremia. Review of labs showed recent sodium of 127. Repeat sodium level today is improved to 130. Recommend to discontinue HCTZ for now. Potassium is 3.5 which we will supplement. Case was discussed with Dr. Salas today. Medical care will be transferred to Dr. Rowe tomorrow per patient/family request. Ab Castellanos MD Hospitalist.
[2018-06-18] MEDS ORDERED: Potassium Chloride 40 mEq/30 ml LIQ UD PO ONE (19:07)
[2018-06-19] MEDS ORDERED: Potassium Chloride 20 mEq ER Tab PO ONE (11:58)
--- NOTE | 2018-06-19 15:33 | PCM.PYCHPN ---
Psychiatric Progress Note - Psychiatric Progress Note Patient seen today, length of contact: 30 minutes Patient Chief Complaint: "who are you?,you know that I do not live here" Problems Identified/Issues Discussed: S scientific technical writer discussed treatment plan with patient power of industrial safety engineer, risks, benefits, alternatives of the medication discussed, POA agreed. Medical Problems: see HPI she was seen by medical team, consult appreciated Diagnostic Results: 06/09/18 07:20 06/09/18 07:20 Lab Results 06/10/18 07:15: RPR Nonreactive 06/10/18 07:15: TSH 3rd Generation 4.34 06/10/18 07:15: Fasting Glucose 83, Triglycerides 82, Cholesterol 237 H, LDL Cholesterol Direct 125, HDL Cholesterol 67 H 06/09/18 08:30: Ammonia < 9 L 06/09/18 08:20: Urine Opiates Screen Negative, Urine Methadone Screen Negative, Ur Barbiturates Screen Negative, Ur Phencyclidine Scrn Negative, Ur Amphetamines Screen Negative, U Benzodiazepines Scrn Negative, U Oth Cocaine Metabols Negative, U Cannabinoids Screen Negative 06/09/18 08:18: Urine Color Yellow, Urine Appearance Clear, Urine pH 6.5, Ur Specific [place] 1.010, Urine Protein Negative, Urine Glucose (UA) Negative, Urine Ketones Negative, Urine Blood Small H, Urine Nitrate Negative, Urine Bilirubin Negative, Urine Urobilinogen 0.2, Ur Leukocyte Esterase Moderate H, Urine RBC 5 - 10, Urine WBC 20 - 25, Ur Epithelial Cells 4 - 5, Amorphous Sediment Few, Urine Bacteria Many 06/09/18 07:20: Salicylates < 1 L, Acetaminophen < 10.0 L 06/09/18 07:20: TSH 3rd Generation 3.95, Alcohol, Quantitative < 10 06/09/18 07:20: Sodium 140, Potassium 3.6, Chloride 104, Carbon Dioxide 27, Anion Gap 13, BUN 12, Creatinine 0.6 L, Est GFR ( Amer) > 60, Est GFR (Non-Af Amer) > 60, Random Glucose 93, Calcium 9.2, Phosphorus 3.6, Magnesium 2.1, Total Bilirubin 0.5, AST 32, ALT 26, Alkaline Phosphatase 54, Lactate Dehydrogenase 585, Total Creatine Kinase 180, Troponin I < 0.01, Total Protein 7.3, Albumin 4.4, Globulin 2.9, Albumin/Globulin Ratio 1.5 06/09/18 07:20: PT 12.0, INR 1.04, APTT 33.2 06/09/18 07:20: WBC 6.7, RBC 4.23, Hgb 12.9, Hct 38.3, MCV 90.5, MCH 30.5, MCHC 33.7, RDW 12.3, Plt Count 278, MPV 10.4, Gran % 56.2, Lymph % (Auto) 29.0, [place] % (Auto) 12.0 H, Eos % (Auto) 2.5, Baso % (Auto) 0.3, Gran # 3.76, Lymph # (Auto) 1.9, [place] # (Auto) 0.8 H, Eos # (Auto) 0.2, Baso # (Auto) 0.02 06/09/18 06:50: POC Glucose (mg/dL) 91 Vital Signs Temp Pulse Resp BP Pulse Ox 06/11/18 07:11 97.6 F 70 20 157/71 H 06/10/18 16:00 77 161/69 H 06/10/18 09:47 74 162/79 H 06/10/18 07:18 98.0 F 74 20 162/79 H 06/09/18 17:50 82 18 144/63 06/09/18 16:40 71 18 180/82 H 06/09/18 16:00 71 180/82 H 06/09/18 15:00 97.9 F 88 18 181/93 H 06/09/18 13:51 98.2 F 86 17 152/95 H 99 06/09/18 13:07 83 17 152/95 H 99 06/09/18 12:45 98.2 F 87 17 99 06/09/18 09:12 79 17 166/76 H 97 06/09/18 07:29 81 17 173/98 H 98 06/09/18 06:49 97.9 F 86 18 167/86 H 97 DSM 5 Symptoms Update: shortly patient is 83 year old female not known previous psychiatric history, patient was brought in by her family including her daughter who is pt's power of industrial safety engineer, as per report pt's neighbor called pt's son tstating that the patient was wandering around in the streets. Pt was convinced that there were people in her house trying to daniel her, as per ED report pt's son found pt's house is in chaos and that the patient will not admit that she did this to her own apartment, pt was refusing to take all of her medications, was refusing to go and see doctors in the community, pt also has ? h/o of dementia, pt was refusing her blood pressure medication or her psychiatric medications. pt was seen today in the dinning area, pt is on 1:1, pt appears to be confused,but much calmer, patient is not aggressive or agitated but mostly confused, pt was c/o pack pain, took tylenol. pt was seen by PT today, will f/u on advise. Family meeting took place 06/18/18, treatment course was discussed in details please see notes for more detailed info. as per family they are hiring homehealth aid for 31/03 care for the pt. patient tolerates medications well, no side effects observed or reported, aims 0, no EPS. Discussed with neurology team, Namenda started. discussed with internal medicine team, antibiotic started for urinary tract infection, completed the course. DSM 5 Diagnosis: psychosis NOS Rule out dementia with psychosis Rule out delirium Medication Change: Yes (Risperdal increased yesterday) Medical Record Reviewed: Yes Mental Status Examination - Cognitive Function Orientation: Person Memory: Impaired Attention: Poor Concentration: Poor Association: Loose Fund of Knowledge: Poor - Mood Mood: Depressed, Anxious - Affect Affect: Constricted (irritable and annoyed), Flat - Formal Thought Process Formal Thought Process: Hallucinations, Delusions, Paranoia, Loosening of associations, Circumstantial - Suicidal Ideation Suicidal Ideation: No - Homicidal Ideation Homicidal Ideation: No Goal/Treatment Plan - Goal/Treatment Plan Need for Continued Stay: Remain at risks for inpatient hospitalization, Severe depression anxiety, Discharge may exacerbated symptoms, Severe functional impairment Progress Toward Problem(s) and Goals/Treatment Plan: Milieu/structure/supportive therapy Medical consult called neurology consult called SW consultation for discharge plan and social issues Med management Seroquel was discontinued by Dr. Booker yesterday Risperdal 0.5 mg at the at the morning and at the nighttime for psychosis Family involvement, discussed with pt's POA, risk, benefits, alternatives of medication as well as treatment plan antibiotic started for urinary tract infection discussed with POA during the family meeting 06/18/18 Follow up on labs Will monitor closely Pt's family/POA educated about risk/benefits and alternatives of medications, coping strategies (safety plan, suicide prevention), relapse prevention, importance of follow up with psychiatrist and therapist the rest of the medications as per medical team: Aspirin [Radha Genuine Aspirin] 81 mg PO DAILY Losartan/Hydrochlorothiazide [Losartan-Hctz 100-12.5 mg Tab] 1 tab PO DAILY amLODIPine [Norvasc] 5 mg PO DAILY discussed with 06/18/18 Na better PT ruth was called Estimated Date of D/C: 06/22/18
--- NOTE | 2018-06-19 16:27 | PN ---
DATE: 06/19/2018 SUBJECTIVE: I was called to see her for Dr. Faustin, the psychiatrist with the family request doing house calls on her and want to me to see her in the hospital. She is resting comfortably in bed, pleasantly confused, on one-to-one. She understands who I was and why I was there. MEDICATIONS: She is Apresoline, Ativan, Cozaar, Geodon, Maalox, Milk of Magnesia, Namenda, Norvasc, Plavix, Risperdal, and Tylenol. PHYSICAL EXAMINATION VITAL SIGNS: She has a 97.3 temperature, 75 pulse, 140/65 blood pressure, 20 respiratory rate. HEENT: Head is atraumatic, normocephalic. HEART: Regular rate. LUNGS: Decreased breath sounds, poor inspiration, but clear to auscultation. No wheezing, no rhonchi, no rales. ABDOMEN: Soft, nontender, positive bowel sounds, scaphoid. EXTREMITIES: No swelling. She can move her extremities okay. PSYCHIATRIC: GCS 15. ROLL CARRIER: Cranial nerves II through XII grossly intact. She is awake. PAST MEDICAL HISTORY: Hypertension, high cholesterol, dementia, TIA, ischemic cerebrovascular disease. She has altered mental status, electrolyte abnormalities with low sodium. LABORATORY DATA: Last labs on 06/14/2018: White count 7, hemoglobin 12.5, platelets 256. Last chemistry was on 06/18/2018: Sodium 130, potassium is 3.5 and will replace the potassium, sodium is definitely improving. BUN 11, creatinine 0.7. GFR is greater than 60. Sugar is 104. Calcium 8.9. AST is 39, ALT is 22, alk phos 54. TSH is 4.34. She will get some potassium today. We will check her labs tomorrow. I will continue to follow her and also on the outpatient doing house calls on her. Gulshan Rowe DO MTDDeann
[2018-06-20 07:47] VITALS: TEMP 97.9
[2018-06-20 08:29] LABS: HEMOGLOBIN 12.3 g/dL (12.0-16.0); MEAN CELL VOLUME 88.7 fl (80.0-105.0); MEAN CORPUSCULAR HEMOGLOBIN 30.1 pg (25.0-35.0); MEAN PLATELET VOLUME 9.7 fl (7.0-11.0); RBC 4.08 10^6/uL (3.5-6.1); RED CELL DISTRIBUTION WIDTH 12.3 % (11.5-14.5); WHITE BLOOD COUNT 6.3 10^3/ul (4.5-11.0)
[2018-06-20 08:54] LABS: ALB/GLOB RATIO 1.2 (1.1-1.8); ALBUMIN 3.4 g/dL (3.0-4.8); ALT/SGPT 31 U/L (7-56); AST/SGOT 27 U/L (14-36); BLOOD UREA NITROGEN 10 mg/dL (7-21); CALCIUM 8.6 mg/dL (8.4-10.5); GFR NON-AFRICAN AMERICAN > 60
--- NOTE | 2018-06-20 11:14 | PN ---
DATE: 06/20/2018 SUBJECTIVE: I saw her sitting out of bed in the day room with a one-to-one sitter. She ate her breakfast. She is pleasantly confused, alert, no acute distress, smiling, doing some drawing. PHYSICAL EXAMINATION: VITAL SIGNS: She has a 97.9 temperature, 82 pulse, 145/64 blood pressure, 20 respiratory rate. HEAD: Atraumatic, normocephalic. HEART: Regular rate. LUNGS: Decreased breath sounds, but clear. ABDOMEN: Soft, nontender. Positive bowel sounds. EXTREMITIES: No edema. She is very thin and frail. She is currently on Apresoline, Ativan, Cozaar, Geodon, Maalox, milk of magnesia, Namenda, Norvasc, Plavix, Risperdal, Tylenol. I did blood test. She has 6.3 white count, 12.3 hemoglobin, 36.2 hematocrit with 303 platelets. She has 134 sodium, potassium 4.2, both better, BUN 10, creatinine 0.6, GFR greater than 60, sugar is 84, calcium is 8.6, total bili is 0.2. AST is 27, ALT is 31, alk phos 54, total protein 6.4. I repeated the TSH. It was normal, now at 4.3, which is good. She does have urinary tract infection and I am going to put her on antibiotics for that. I do not see an antibiotic, although, the urine did not show any bacteria on the second urine from 5 days earlier. will still keep a close eye on her. She is here for low sodium which is corrected, low potassium which is corrected, urinary tract infection, got less bacteria, ischemic heart disease, dementia, high cholesterol, hypertension, which is okay. I will continue with aggressive treatment and care. Gulshan Rowe DO
--- NOTE | 2018-06-20 12:37 | PCM.PYCHPN ---
Psychiatric Progress Note - Psychiatric Progress Note Patient seen today, length of contact: 30 minutes Patient Chief Complaint: "who are you?,you know that I do not live here" Problems Identified/Issues Discussed: S va underwriter discussed treatment plan with patient power of business attorney, risks, benefits, alternatives of the medication discussed, POA agreed. Medical Problems: see HPI she was seen by medical team, consult appreciated Diagnostic Results: 06/09/18 07:20 06/09/18 07:20 Lab Results 06/10/18 07:15: RPR Nonreactive 06/10/18 07:15: TSH 3rd Generation 4.34 06/10/18 07:15: Fasting Glucose 83, Triglycerides 82, Cholesterol 237 H, LDL Cholesterol Direct 125, HDL Cholesterol 67 H 06/09/18 08:30: Ammonia < 9 L 06/09/18 08:20: Urine Opiates Screen Negative, Urine Methadone Screen Negative, Ur Barbiturates Screen Negative, Ur Phencyclidine Scrn Negative, Ur Amphetamines Screen Negative, U Benzodiazepines Scrn Negative, U Oth Cocaine Metabols Negative, U Cannabinoids Screen Negative 06/09/18 08:18: Urine Color Yellow, Urine Appearance Clear, Urine pH 6.5, Ur Specific [place] 1.010, Urine Protein Negative, Urine Glucose (UA) Negative, Urine Ketones Negative, Urine Blood Small H, Urine Nitrate Negative, Urine Bilirubin Negative, Urine Urobilinogen 0.2, Ur Leukocyte Esterase Moderate H, Urine RBC 5 - 10, Urine WBC 20 - 25, Ur Epithelial Cells 4 - 5, Amorphous Sediment Few, Urine Bacteria Many 06/09/18 07:20: Salicylates < 1 L, Acetaminophen < 10.0 L 06/09/18 07:20: TSH 3rd Generation 3.95, Alcohol, Quantitative < 10 06/09/18 07:20: Sodium 140, Potassium 3.6, Chloride 104, Carbon Dioxide 27, Anion Gap 13, BUN 12, Creatinine 0.6 L, Est GFR ( Amer) > 60, Est GFR (Non-Af Amer) > 60, Random Glucose 93, Calcium 9.2, Phosphorus 3.6, Magnesium 2.1, Total Bilirubin 0.5, AST 32, ALT 26, Alkaline Phosphatase 54, Lactate Dehydrogenase 585, Total Creatine Kinase 180, Troponin I < 0.01, Total Protein 7.3, Albumin 4.4, Globulin 2.9, Albumin/Globulin Ratio 1.5 06/09/18 07:20: PT 12.0, INR 1.04, APTT 33.2 06/09/18 07:20: WBC 6.7, RBC 4.23, Hgb 12.9, Hct 38.3, MCV 90.5, MCH 30.5, MCHC 33.7, RDW 12.3, Plt Count 278, MPV 10.4, Gran % 56.2, Lymph % (Auto) 29.0, [place] % (Auto) 12.0 H, Eos % (Auto) 2.5, Baso % (Auto) 0.3, Gran # 3.76, Lymph # (Auto) 1.9, [place] # (Auto) 0.8 H, Eos # (Auto) 0.2, Baso # (Auto) 0.02 06/09/18 06:50: POC Glucose (mg/dL) 91 Vital Signs Temp Pulse Resp BP Pulse Ox 06/11/18 07:11 97.6 F 70 20 157/71 H 06/10/18 16:00 77 161/69 H 06/10/18 09:47 74 162/79 H 06/10/18 07:18 98.0 F 74 20 162/79 H 06/09/18 17:50 82 18 144/63 06/09/18 16:40 71 18 180/82 H 06/09/18 16:00 71 180/82 H 06/09/18 15:00 97.9 F 88 18 181/93 H 06/09/18 13:51 98.2 F 86 17 152/95 H 99 06/09/18 13:07 83 17 152/95 H 99 06/09/18 12:45 98.2 F 87 17 99 06/09/18 09:12 79 17 166/76 H 97 06/09/18 07:29 81 17 173/98 H 98 06/09/18 06:49 97.9 F 86 18 167/86 H 97 DSM 5 Symptoms Update: shortly patient is 83 year old female not known previous psychiatric history, patient was brought in by her family including her daughter who is pt's power of business attorney, as per report pt's neighbor called pt's son tstating that the patient was wandering around in the streets. Pt was convinced that there were people in her house trying to daniel her, as per ED report pt's son found pt's house is in chaos and that the patient will not admit that she did this to her own apartment, pt was refusing to take all of her medications, was refusing to go and see doctors in the community, pt also has ? h/o of dementia, pt was refusing her blood pressure medication or her psychiatric medications. pt was seen today in the dinning area, pt is on 1:1, pt appears to be confused,but much calmer, patient is not aggressive or agitated but mostly confused. patient was seen by physical therapy, recommended discharge home with services. Family meeting took place 06/18/18, treatment course was discussed in details please see notes for more detailed info. as per family they are hiring home health aid for 31/03 care for the pt. patient tolerates medications well, no side effects observed or reported, aims 0, no EPS. Discussed with neurology team, Namenda started. discussed with internal medicine team, antibiotic started for urinary tract infection, completed the course. DSM 5 Diagnosis: psychosis NOS Rule out dementia with psychosis Rule out delirium Medication Change: No Medical Record Reviewed: Yes Mental Status Examination - Cognitive Function Orientation: Person Memory: Impaired Attention: Poor Concentration: Poor Association: Loose Fund of Knowledge: Poor - Mood Mood: Depressed, Anxious - Affect Affect: Constricted (irritable and annoyed), Flat - Formal Thought Process Formal Thought Process: Hallucinations, Delusions, Paranoia, Loosening of associations, Circumstantial - Suicidal Ideation Suicidal Ideation: No - Homicidal Ideation Homicidal Ideation: No Goal/Treatment Plan - Goal/Treatment Plan Need for Continued Stay: Remain at risks for inpatient hospitalization, Severe depression anxiety, Discharge may exacerbated symptoms, Severe functional impairment Progress Toward Problem(s) and Goals/Treatment Plan: Milieu/structure/supportive therapy Medical consult called neurology consult called SW consultation for discharge plan and social issues Med management Seroquel was discontinued by Dr. Booker Risperdal 0.5 mg at the at the morning and at the nighttime for psychosis Family involvement, discussed with pt's POA, risk, benefits, alternatives of medication as well as treatment plan antibiotic for urinary tract infection, patient completed the treatment discussed with POA during the family meeting 06/18/18 Follow up on labs Will monitor closely Pt's family/POA educated about risk/benefits and alternatives of medications, coping strategies (safety plan, suicide prevention), relapse prevention, importance of follow up with psychiatrist and therapist the rest of the medications as per medical team: Aspirin [Radha Genuine Aspirin] 81 mg PO DAILY Losartan/Hydrochlorothiazide [Losartan-Hctz 100-12.5 mg Tab] 1 tab PO DAILY amLODIPine [Norvasc] 5 mg PO DAILY discussed with 06/18/18 Na better PT ruth was called, recommended home services Estimated Date of D/C: 06/22/18
[2018-06-21 07:11] VITALS: BP 146/65; PULSE 72; RESP 19
--- NOTE | 2018-06-21 10:10 | PCM.PYCHPN ---
Psychiatric Progress Note - Psychiatric Progress Note Patient seen today, length of contact: 30 minutes Patient Chief Complaint: "I am here you know" Problems Identified/Issues Discussed: S brief writer discussed treatment plan with patient power of traffic law attorney, risks, benefits, alternatives of the medication discussed, POA agreed. Medical Problems: see HPI she was seen by medical team, consult appreciated Diagnostic Results: 06/09/18 07:20 06/09/18 07:20 Lab Results 06/10/18 07:15: RPR Nonreactive 06/10/18 07:15: TSH 3rd Generation 4.34 06/10/18 07:15: Fasting Glucose 83, Triglycerides 82, Cholesterol 237 H, LDL Cholesterol Direct 125, HDL Cholesterol 67 H 06/09/18 08:30: Ammonia < 9 L 06/09/18 08:20: Urine Opiates Screen Negative, Urine Methadone Screen Negative, Ur Barbiturates Screen Negative, Ur Phencyclidine Scrn Negative, Ur Amphetamines Screen Negative, U Benzodiazepines Scrn Negative, U Oth Cocaine Metabols N egative, U Cannabinoids Screen Negative 06/09/18 08:18: Urine Color Yellow, Urine Appearance Clear, Urine pH 6.5, Ur Specific [place] 1.010, Urine Protein Negative, Urine Glucose (UA) Negative, Urine Ketones Negative, Urine Blood Small H, Urine Nitrate Negative, Urine Bilirubin Negative, Urine Urobilinogen 0.2, Ur Leukocyte Esterase Moderate H, Urine RBC 5 - 10, Urine WBC 20 - 25, Ur Epithelial Cells 4 - 5, Amorphous Sedi ment Few, Urine Bacteria Many 06/09/18 07:20: Salicylates < 1 L, Acetaminophen < 10.0 L 06/09/18 07:20: TSH 3rd Generation 3.95, Alcohol, Quantitative < 10 06/09/18 07:20: Sodium 140, Potassium 3.6, Chloride 104, Carbon Dioxide 27, Anion Gap 13, BUN 12, Creatinine 0.6 L, Est GFR ( Amer) > 60, Est GFR (Non-Af Amer) > 60, Random Glucose 93, Calcium 9.2, Phosphorus 3.6, Magnesium 2.1, Total Bilirubin 0.5, AST 32, ALT 26, Alkaline Phosphatase 54, Lactate Dehydrogenase 585, Total Creatine Kinase 180, Troponin I < 0.01, Total Protein 7.3, Albumin 4.4, Globulin 2.9, Albumin/Globulin Ratio 1.5 06/09/18 07:20: PT 12.0, INR 1.04, APTT 33.2 06/09/18 07:20: WBC 6.7, RBC 4.23, Hgb 12.9, Hct 38.3, MCV 90.5, MCH 30.5, MCHC 33.7, RDW 12.3, Plt Count 278, MPV 10.4, Gran % 56.2, Lymph % (Auto) 29.0, [place] % (Auto) 12.0 H, Eos % (Auto) 2.5, Baso % (Auto) 0.3, Gran # 3.76, Lymph # (Auto) 1.9, [place] # (Auto) 0.8 H, Eos # (Auto) 0.2, Baso # (Auto) 0.02 06/09/18 06:50: POC Glucose (mg/dL) 91 Vital Signs Temp Pulse Resp BP Pulse Ox 06/11/18 07:11 97.6 F 70 20 157/71 H 06/10/18 16:00 77 161/69 H 06/10/18 09:47 74 162/79 H 06/10/18 07:18 98.0 F 74 20 162/79 H 06/09/18 17:50 82 18 144/63 06/09/18 16:40 71 18 180/82 H 06/09/18 16:00 71 180/82 H 06/09/18 15:00 97.9 F 88 18 181/93 H 06/09/18 13:51 98.2 F 86 17 152/95 H 99 06/09/18 13:07 83 17 152/95 H 99 06/09/18 12:45 98.2 F 87 17 99 06/09/18 09:12 79 17 166/76 H 97 06/09/18 07:29 81 17 173/98 H 98 06/09/18 06:49 97.9 F 86 18 167/86 H 97 DSM 5 Symptoms Update: shortly patient is 83 year old female not known previous psychiatric history, patient was brought in by her family including her daughter who is pt's power of traffic law attorney, as per report pt's neighbor called pt's son tstating that the patient was wandering around in the streets. Pt was convinced that there were people in her house trying to daniel her, as per ED report pt's son found pt's house is in chaos and that the patient will not admit that she did this to her own apartment, pt was refusing to take all of her medications, was refusing to go and see doctors in the community, pt also has ? h/o of dementia, pt was refusing her blood pressure medication or her psychiatric medications. pt was seen today in the dinning area, pt is on 1:1, pt appears to be confused,but much calmer, mostly confused. patient was seen by physical therapy, recommended discharge home with services. as per staff pt was paranoid, thought that RNs are a gang memebers, pt was combative yesterday at HS, required PRN meds. pt presented well today, good hygiene because PCP takes good care of the pt. Family meeting took place 06/18/18, treatment course was discussed in details please see notes for more detailed info. as per family they are hiring home health aid for 31/03 care for the pt. patient tolerates medications well, no side effects observed or reported, aims 0, no EPS. Neurology team started Namenda. discussed with internal medicine team, antibiotic started for urinary tract infection, completed the course. DSM 5 Diagnosis: psychosis NOS Rule out dementia with psychosis Rule out delirium Medication Change: No Medical Record Reviewed: Yes Mental Status Examination - Cognitive Function Orientation: Person Memory: Impaired Attention: Poor (seems baseline) Concentration: Poor (seems baseline) Association: Loose (seems baseline) Fund of Knowledge: Poor - Mood Mood: Depressed, Anxious - Affect Affect: Constricted (smiling today), Flat - Formal Thought Process Formal Thought Process: Hallucinations, Delusions, Paranoia, Loosening of associations, Circumstantial - Suicidal Ideation Suicidal Ideation: No - Homicidal Ideation Homicidal Ideation: No Goal/Treatment Plan - Goal/Treatment Plan Need for Continued Stay: Remain at risks for inpatient hospitalization, Severe depression anxiety, Discharge may exacerbated symptoms, Severe functional impairment Progress Toward Problem(s) and Goals/Treatment Plan: Milieu/structure/supportive therapy Medical consult called neurology consult called consultation for discharge plan and social issues Med management Seroquel was discontinued by Dr. Jhony Nicholsonperdal 0.5 mg at the at the morning and at the nighttime for psychosis Family involvement, discussed with pt's POA, risk, benefits, alternatives of medication as well as treatment plan antibiotic for urinary tract infection, patient completed the treatment discussed with POA during the family meeting 06/18/18 Follow up on labs Will monitor closely Pt's family/POA educated about risk/benefits and alternatives of medications, coping strategies (safety plan, suicide prevention), relapse prevention, importance of follow up with psychiatrist and therapist the rest of the medications as per medical team: Aspirin [Rahda Genuine Aspirin] 81 mg PO DAILY Losartan/Hydrochlorothiazide [Losartan-Hctz 100-12.5 mg Tab] 1 tab PO DAILY amLODIPine [Norvasc] 5 mg PO DAILY discussed with 06/18/18 Na better PT ruth was called, recommended home services Estimated Date of D/C: 06/22/18
--- NOTE | 2018-06-21 13:28 | PN ---
DATE: 06/21/2018 SUBJECTIVE: I saw her resting out of bed to chair. She is being fed breakfast. She is alert and confused, very pleasant this morning. She is on a one-to-one. PHYSICAL EXAMINATION: GENERAL: She is talking, she is alert, but confused. VITAL SIGNS: She has 97.9 temperature, 82 pulse, 146/65 blood pressure, 19 respiratory rate. HEENT: Head is atraumatic, normocephalic. HEART: Regular rate. LUNGS: Decreased breath sounds, but clear. ABDOMEN: Soft. EXTREMITIES: No edema. MEDICATIONS: She is currently on Apresoline, Ativan, Cozaar, Geodon, Maalox, Milk of Magnesia, Namenda, Norvasc, Plavix, Risperdal, and Tylenol. LABORATORY DATA: Last labs on the , she did well with her CBC. She did well with her chemistry. try to be explain her what it was and what the plan is for her and as per Psychiatry. I will continue to see her after she is discharged on house calls. She had low sodium, low potassium, which corrected. Hypertension, high cholesterol, dementia, ischemic heart disease, and urinary tract infection. Gulshan Rowe DO MTDD
--- NOTE | 2018-06-21 16:41 | PCM.RRT ---
<Stan Du - Last Filed: 06/21/18 17:16> URBAN ANTHROPOLOGIST Nurse Assessment - Situation Date: 06/21/18 Time URBAN ANTHROPOLOGIST was called: 16:16 URBAN ANTHROPOLOGIST Responder Arrival Time: 16:18 URBAN ANTHROPOLOGIST Location:: Psychiatry Unit URBAN ANTHROPOLOGIST Reason for Call: Change in Mental Status URBAN ANTHROPOLOGIST Called By: RN - IV IV Inserted during URBAN ANTHROPOLOGIST?: No - Respiratory Oxygen Delivery Method: Room Air Received Nebulizer Treatments:: No Was the Patient Ventilated with Bag/Mask 100% O2?: No Secretions Suctioned?: No Was the Patient Intubated?: No Was the Patient Placed on a Ventilator?: No - Diagnostic Test Ordered EKG: Yes Chest X-Ray: Yes - Stat Labs Ordered URBAN ANTHROPOLOGIST Stat Labs Ordered: CBC, BMP, TROPONIN CPR started during URBAN ANTHROPOLOGIST?: No - [place] Coma Scale Coma Scale Eye Opening: Spontaneous Coma Scale Motor: Obeys Commands Movement Coma Scale Verbal: Oriented - Sepsis Screen Part 2 Sepsis Screen Part 2: Glucose elevated, Pt not on steroids - Recommendations 5) URBAN ANTHROPOLOGIST Level of Care Recommendations: Discharge to Emergency Room Notifications: Attending Physician I.Reason for URBAN ANTHROPOLOGIST - A) Acute Change in Patient: (Select all that apply): Acute change in mental status, Acute change in SBP below Subjective: Stan Du PGY1 Multidisciplinary Rapid Response Note for Dr Castellanos URBAN ANTHROPOLOGIST was called because pt stated she felt dizzy and lightheaded. She was found to have an elevated blood pressure of 173/125, HR 101. She denies chest pain, SOB, nausea or vomiting. Pt has been at her normal baseline all day today. She was up walking around without discomfort before the rapid. Pt stated she felt generalized weakness which started at the time of the rapid response. Pt was lethargic, sitting with her eyes closed during the interview and physical exam. - Neurological Status (Select all that apply): Responsive, Oriented, Lethargic - Respiratory Oxygen Delivery Method: Room Air - Constitutional Appears: Non-toxic - Head Head Exam: ATRAUMATIC, NORMAL INSPECTION, NORMOCEPHALIC - Respiratory Exam Respiratory Exam: Clear to Ausculation Bilateral, NORMAL BREATHING PATTERN. absent: Accessory Muscle Use, Wheezes, Respiratory Distress - Cardiovascular Exam Cardiovascular Exam: RRR, +S1, +S2. absent: Diastolic murmur, Murmur - Neurological Exam Neurological Exam: Awake, Oriented x3 - Extremities Exam Extremities Exam: Full ROM Plan - Assessment of Findings&Treatment Plan Dizziness, elevated BP - ordered troponin - ordered EKG - ordered CMP, CBC - ordered CXR Discussed with Dr Soledad pt to be transferred to the ED for further evaluation <Ab Castellanos - Last Filed: 06/21/18 22:06> URBAN ANTHROPOLOGIST Nurse Assessment - Vital Signs Vital Sign: Rapid Response Vital Sign Blood Pressure 173/125 Pulse Rate 101 Respiratory Rate 26 Temperature 98.6 F Oxygen Saturation 97 - Vital Signs at end of URBAN ANTHROPOLOGIST Vital Signs at end of URBAN ANTHROPOLOGIST: Rapid Response End Vital Sign Blood Pressure 147/69 Pulse Rate 86 Respiratory Rate 22 Temperature 97.8 F Attending/Attestation - Attestation I have personally seen and examined this patient.: Yes I have fully participated in the care of the patient.: Yes I have reviewed all pertinent clinical information, including history, physical exam and plan: Yes
[2018-06-21 16:51] LABS: BASO # 0.02 K/mm3 (0.0-2.0); BASO % 0.2 % (0.0-3.0); EOS # 0.2 (0.0-0.7); EOS % 2.1 % (1.5-5.0); GRAN # 5.24 (1.4-6.5); GRAN % 60.8 % (50.0-68.0); HEMOGLOBIN 12.9 g/dL (12.0-16.0); LYMPH # 2.1 (1.2-3.4); LYMPH % 24.1 % (22.0-35.0); MEAN CELL VOLUME 89.9 fl (80.0-105.0); MEAN CORPUSCULAR HEMOGLOBIN 30.4 pg (25.0-35.0); MEAN CORPUSCULAR HGB CONC 33.9 g/dl (31.0-37.0); MEAN PLATELET VOLUME 9.1 fl (7.0-11.0); MONO # 1.1 (0.1-0.6); MONO % 12.8 % (1.0-6.0); RBC 4.24 10^6/uL (3.5-6.1); RED CELL DISTRIBUTION WIDTH 12.5 % (11.5-14.5); WHITE BLOOD COUNT 8.6 10^3/ul (4.5-11.0)
[2018-06-21 17:01] LABS: ALB/GLOB RATIO 1.3 (1.1-1.8); ALBUMIN 4.1 g/dL (3.0-4.8); ALT/SGPT 36 U/L (7-56); AST/SGOT 42 U/L (14-36); BLOOD UREA NITROGEN 14 mg/dL (7-21); CALCIUM 8.8 mg/dL (8.4-10.5); GFR NON-AFRICAN AMERICAN > 60
[2018-06-21 17:07] LABS: TROPONIN I < 0.01 ng/mL
--- NOTE | 2018-06-22 09:24 | PCM.PYCHDC ---
Mental Status Examination - Mental Status Examination Orientation: Person Memory: Impaired (chronic), Remote, Confabulations Affect: Constricted Speech: Slurred Attention: Poor Concentration: Poor Association: Loose (baseline) Fund of Knowledge: WNL Formal Thought Process: Hallucinations (pt is demented, paranoid, but it seems to be baseline), Delusions, Paranoia Description of patient's judgement and insight: impaired, chronic Psychotic Thoughts and Behaviors: pt has disorganized thoughts and behavior pt has advanced dementia Suicidal Ideation: No Current Homicidal Ideation?: No Plan: pt did not exhibit any aggressive or agitated behavior Discharge Summary - Discharge Note Reason for Hospitalization: patient was admitted to the psychiatric inpatient unit for evaluation and stabilization of psychosis, patient was wandering around in the community, had visual hallucinations, paranoia, inability to function. Psychiatric History (includes Medical, Family, Personal Hx): see HPI Laboratory Data: Abnormal Lab Results 06/21/18 06/21/18 06/21/18 16:14 16:40 16:40 WBC 8.6 D RBC 4.24 Hgb 12.9 Hct 38.1 MCV 89.9 MCH 30.4 MCHC 33.9 RDW 12.5 Plt Count 358 MPV 9.1 Gran % 60.8 Lymph % (Auto) 24.1 Ransom % (Auto) 12.8 H Eos % (Auto) 2.1 Baso % (Auto) 0.2 Gran # 5.24 Lymph # (Auto) 2.1 Ransom # (Auto) 1.1 H Eos # (Auto) 0.2 Baso # (Auto) 0.02 Sodium 134 Potassium 4.3 Chloride 98 Carbon Dioxide 25 Anion Gap 14 BUN 14 Creatinine 0.6 L Est GFR ( Amer) > 60 Est GFR (Non-Af Amer) > 60 POC Glucose (mg/dL) 122 H Random Glucose 119 H Calcium 8.8 Total Bilirubin 0.2 AST 42 H D ALT 36 Alkaline Phosphatase 63 Troponin I < 0.01 Total Protein 7.3 Albumin 4.1 Globulin 3.2 Albumin/Globulin Ratio 1.3 Consultations:: List each consultation separately and include: 1. Reason for request. 2. Findings. 3. Follow-up Consultations: medical consultation appreciated Neurology consultation appreciated Summary of Hospital Course include:: 1. Description of specific treatment plan utilized for patients during their course of treatmen. 2. Summarize the time- course for resolution of acute symptoms and/or regressed behaviors. 3. Describe issues identified and worked on during hospitalization. 4. Describe medication utilized. 5. Describe medical problems identified and treated. 6. Reassessment of suicide risk Summary of Hospital Course: shortly patient is 83 year old female not known previous psychiatric h istory, patient was brought in by her family including her daughter who is pt's power of assistant city attorney, as per report pt's neighbor called pt's son tstating that the patient was wandering around in the streets. Pt was convinced that there were people in her house trying to daniel her, as per ED report pt's son found pt's house is in chaos and that the patient will not admit that she did this to her own apartment, pt was refusing to take all of her medications, was refusing to go and see doctors in the community, pt also has ? h/o of dementia, pt was refusing her blood pressure medication or her psychiatric medications. this sheet writer had prolonged conversation with patient's power of assistant city attorney Liana, daughter of the patient, offered admission, discussed treatment plan, POA agreed, see admission note for more detailed info. 06/09/18 07:20 06/09/18 07:20 Lab Results 06/10/18 07:15: TSH 3rd Generation 4.34 06/10/18 07:15: Fasting Glucose 83, Triglycerides 82, Cholesterol 237 H, LDL Cholesterol Direct 125, HDL Cholesterol 67 H 06/09/18 08:30: Ammonia < 9 L 06/09/18 08:20: Urine Opiates Screen Negative, Urine Methadone Screen Negative, Ur Barbiturates Screen Negative, Ur Phencyclidine Scrn Negative, Ur Amphetamines Screen Negative, U Benzodiazepines Scrn Negative, U Oth Cocaine Metabols Negative, U Cannabinoids Screen Negative 06/09/18 08:18: Urine Color Yellow, Urine Appearance Clear, Urine pH 6.5, Ur Specific [place] 1.010, Urine Protein Negative, Urine Glucose (UA) Negative, Urine Ketones Negative, Urine Blood Small H, Urine Nitrate Negative, Urine Bilirubin Negative, Urine Urobilinogen 0.2, Ur Leukocyte Esterase Moderate H, Urine RBC 5 - 10, Urine WBC 20 - 25, Ur Epithelial Cells 4 - 5, Amorphous Sediment Few, Urine Bacteria Many 06/09/18 07:20: Salicylates < 1 L, Acetaminophen < 10.0 L 06/09/18 07:20: TSH 3rd Generation 3.95, Alcohol, Quantitative < 10 06/09/18 07:20: Sodium 140, Potassium 3.6, Chloride 104, Carbon Dioxide 27, Anion Gap 13, BUN 12, Creatinine 0.6 L, Est GFR ( Amer) > 60, Est GFR (Non-Af Amer) > 60, Random Glucose 93, Calcium 9.2, Phosphorus 3.6, Magnesium 2.1, Total Bilirubin 0.5, AST 32, ALT 26, Alkaline Phosphatase 54, Lactate Dehydrogenase 585, Total Creatine Kinase 180, Troponin I < 0.01, Total Protein 7.3, Albumin 4.4, Globulin 2.9, Albumin/Globulin Ratio 1.5 06/09/18 07:20: PT 12.0, INR 1.04, APTT 33.2 06/09/18 07:20: WBC 6.7, RBC 4.23, Hgb 12.9, Hct 38.3, MCV 90.5, MCH 30.5, MCHC 33.7, RDW 12.3, Plt Count 278, MPV 10.4, Gran % 56.2, Lymph % (Auto) 29.0, Ransom % (Auto) 12.0 H, Eos % (Auto) 2.5, Baso % (Auto) 0.3, Gran # 3.76, Lymph # (Auto) 1.9, Ransom # (Auto) 0.8 H, Eos # (Auto) 0.2, Baso # (Auto) 0.02 06/09/18 06:50: POC Glucose (mg/dL) 91 Vital Signs Temp Pulse Resp BP Pulse Ox 06/10/18 09:47 74 162/79 H 06/10/18 07:18 98.0 F 74 20 162/79 H 06/09/18 17:50 82 18 144/63 06/09/18 16:40 71 18 180/82 H 06/09/18 16:00 71 180/82 H 06/09/18 15:00 97.9 F 88 18 181/93 H 06/09/18 13:51 98.2 F 86 17 152/95 H 99 06/09/18 13:07 83 17 152/95 H 99 06/09/18 12:45 98.2 F 87 17 99 06/09/18 09:12 79 17 166/76 H 97 06/09/18 07:29 81 17 173/98 H 98 06/09/18 06:49 97.9 F 86 18 167/86 H 97 over the course of this hospitalization pt was tried seroquel but was sedated on this medication, was switched to Risperdal which was slowly increased to 0. 5mg po bid for psychosis pt was on 1:1 because pt high risk of fall and required constant assistance pt was seen by medical team for UTI, completed the course of antibiotics pt was seen by Neurologist pt was seen by PT team please see notes for more detailed information family meeting took place last week, POA was educated about medications, risk/benefits and alternatives discussed, POA verbalized understanding family will arrange 31/03 care, this sheet writer and SW offered NH placement, but POA did not want to place pt in NH as of yet pt's family requested house visit by and , SW will provide info overall pt improved and was scheduled for DC today On Friday06/21/18 pt became lethargic and unresponsive, rapid response was called, pt was transferred to the medical site for further evaluation and stabilization, family was notified by RN. discussed with today, as per pt will be seen by Neurologist and lens cementer today, and if pt is cleared from medical standpoint pt is ready to be d/c back home with home services. pt has dementia, pt reached maximum effect from the psychiatric admission. - Diagnosis (1) Dementia with behavioral disturbance Status: Chronic Priority: High - Final Diagnosis (DSM 5) Condition upon Discharge: STABLE Disposition: OTHER INSTITUTION Follow-up Treatment Plan: PMD Psychiatrist - Smoking Cessation Smoking Cessation Medication prescribed: No Reason for not providing: pt does not smoke - Antipsychotic Medications Pt discharged on 2 or more routine antipsychotic medications: No
--- NOTE | 2018-06-22 11:15 | CARD ---
APPROVED REPORT Date of service: 06/21/2018 EKG Measurement Heart [id number] <Conclusion> Sinus rhythm with premature atrial complexes and premature ventricular complexes or fusion complexes Moderate voltage criteria for LVH. Borderline ECG
--- NOTE | 2018-06-23 08:41 | CON ---
DATE: 06/22/2018 CARDIOLOGY CONSULTATION HISTORY: The patient is an 83-year-old woman, who was admitted with confusion. She was found to have dementia according to the neurologic diagnosis. In addition, she was in the psych floor with a history of depression. The patient is on multiple medications upstairs. There is no previous cardiac history. She was transferred to telemetry because of the complaints of dizziness with no syncope. On telemetry, her vital signs were stable, and her dizziness resolved without issues. She does have a history of hypertension and is on antihypertensive medications. SOCIAL HISTORY: Denies smoking. A 14-point review of systems is reviewed in detail. No angina, no shortness of breath. Negative edema. No dyspnea. PHYSICAL EXAMINATION: Blood pressure is 138/57, heart rate is in the 70s. Neck, negative JVD. Lungs without rales. Heart, S1 and S2. Extremities without edema. EKG is within normal limits. LABORATORY DATA: Troponins are negative x2. BUN and creatinine are unremarkable. Hemoglobin is 12.1. IMPRESSION: 1. Transient dizziness. 2. History of hypertension. 3. Depression. 4. Dementia. Given these findings, we will DC telemetry today. We will obtain an echocardiogram to evaluate her LV function. Demetrio Roldan MD
== END 2018-06-21 16:50 | disposition short-term general hospital (02) | DRG 884 ==
LOC: ED 06:37 → ERH 10:51 → PSYC 14:28 → 5RNO 06-15 19:46 → PSYC 06-15 19:51
PROVIDERS: ADMIT Psychiatry & Neurology Psychiatry; ATTEND Psychiatry & Neurology Psychiatry
PROC: GZ3ZZZZ Medication Management (ICD-10-PCS; principal; 2018-06-09)
DX: F03.91 Unspecified dementia, unspecified severity, with behavioral disturbance (principal); N39.0 Urinary tract infection, site not specified; E87.1 Hypo-osmolality and hyponatremia; F05 Delirium due to known physiological condition; Z91.83 Wandering in diseases classified elsewhere; I10 Essential (primary) hypertension; E78.00 Pure hypercholesterolemia, unspecified; F41.9 Anxiety disorder, unspecified; F32.9 Major depressive disorder, single episode, unspecified; Z91.81 History of falling; Z86.73 Personal history of transient ischemic attack (TIA), and cerebral infarction without residual deficits; Z79.02 Long term (current) use of antithrombotics/antiplatelets; Z79.82 Long term (current) use of aspirin

== ENCOUNTER 2018-06-21 16:50 | Observation (INO) | payer MEDICARE ==
[2018-06-21 17:37] LABS: BASO # 0.02 K/mm3 (0.0-2.0); BASO % 0.3 % (0.0-3.0); EOS # 0.2 (0.0-0.7); EOS % 2.3 % (1.5-5.0); GRAN # 4.52 (1.4-6.5); GRAN % 64.8 % (50.0-68.0); HEMOGLOBIN 12.6 g/dL (12.0-16.0); LYMPH # 1.5 (1.2-3.4); LYMPH % 21.3 % (22.0-35.0); MEAN CELL VOLUME 89.9 fl (80.0-105.0); MEAN CORPUSCULAR HEMOGLOBIN 30.4 pg (25.0-35.0); MEAN CORPUSCULAR HGB CONC 33.9 g/dl (31.0-37.0); MEAN PLATELET VOLUME 9.3 fl (7.0-11.0); MONO # 0.8 (0.1-0.6); MONO % 11.3 % (1.0-6.0); RBC 4.14 10^6/uL (3.5-6.1); RED CELL DISTRIBUTION WIDTH 12.4 % (11.5-14.5)
[2018-06-21 17:45] LABS: INR 1.07; PARTIAL THROMBOPLASTIN TIME 29.9 Seconds (25.1-36.5); PROTHROMBIN TIME 12.2 SECONDS (9.4-12.5)
--- NOTE | 2018-06-21 17:50 | ED PDOC ---
Arrival/HPI - General Chief Complaint: Altered Mental Status Time Seen by Provider: 06/21/18 16:54 Historian: Patient - History of Present Illness Narrative History of Present Illness (Text): 06/21/18 19:17 Patient is an 83 yo female presents from Behavioral Health floor after staff noticed that patient appeared to be "not acting herself" and "appeared short of breath". History is obtained from medical personnel who evaluated patient on floor. Patient states that she "feels tired" but denies any pain or discomfort. Review of documentation and direct conversation with staff, patient reportedly had no new medications, no fall or injury today, no complaints earlier this am. They deny loss of consciousness but state that the patient "appeared to be not herself and very weak" and was not acting herself. Time/Duration: Prior to Arrival Symptom Onset: Sudden Past Medical History - Infectious Disease Hx of Infectious Diseases: None - Tetanus Immunization Tetanus Immunization: Unknown - Cardiac Hx Cardiac Disorders: Yes Hx Hypertension: Yes - Pulmonary Hx Tuberculosis: No - Neurological Hx Neurological Disorder: Yes Hx Dementia: Yes Hx Transient Ischemic Attacks (TIA): Yes - Hematological/Oncological Hx Blood Transfusions: No Hx Blood Transfusion Reaction: No - Genitourinary/Gynecological Hx Sexually Transmitted Diseases: No - Psychiatric Hx Depression: No Hx Emotional Abuse: No Hx Physical Abuse: No Hx Substance Use: No - Anesthesia Hx Anesthesia Reactions: No Hx Malignant Hyperthermia: No - Suicidal Assessment Feels Threatened In Home Enviroment: No Family/Social History Family/Social History: Unknown Family HX Smoking Status: Never Smoked Hx Alcohol Use: No Hx Substance Use: No Hx Substance Use Treatment: No Allergies/Home Meds Allergies/Adverse Reactions: Allergies No Known Allergies Allergy (Verified 06/21/18 17:58) Review of Systems - Review of Systems Constitutional: Fatigue. absent: Fevers Respiratory: absent: SOB Cardiovascular: absent: Chest Pain, LOCKE Gastrointestinal: absent: Abdominal Pain, Diarrhea Musculoskeletal: Back Pain. absent: Neck Pain Skin: absent: Rash Neurological: Other ("patient wasn't talking as much"). absent: Headache, Dizziness, Focal Weakness Psychiatric: absent: Suicidal Ideation Physical Exam - Physical Exam Narrative Physical Exam (Text): 06/21/18 17:50 Head: Atraumatic. Normocephalic. Eyes: PERRL. EOMI. Left conjunctiva mildly inected with clear drainage, no periorbital edema. No pain with eye movements. No pain with eye movements. ENT: Mucous membranes are moist and intact. Oropharynx is clear and symmetric. Neck: Supple. Full ROM. No meningeal signs. Cardiovascular: Regular rate. Regular rhythm. Systolic murmur. Distal pulses are 2+ and symmetric. Pulmonary/Chest: No evidence of respiratory distress. Clear to auscultation bilaterally. No wheezing, rales or rhonchi. Abdominal: Soft and non-distended. There is no tenderness. No rebound, guarding, or rigidity. No organomegaly. Good bowel sounds. Back: No CVA tenderness. Lower paraspinal tenderness. Extremities: No edema. No cyanosis. No clubbing. Full range of motion in all extremities. No calf tenderness. Skin: Skin is warm and dry. No petechiae. No purpura. Neurological: Alert, awake. Oriented to place. No facial droop. No slurred speech. No focal weakness. No pronator drift. No meningeal signs. Psychiatric: Good eye contact. Patient answers questions appropriatedly. No agitation. Vital Signs Reviewed: Yes Vital Signs Temp Pulse Resp BP Pulse Ox 06/21/18 16:55 97.8 F 96 H 18 155/75 H 100 Temperature: Afebrile Appearance: Positive for: Well-Appearing, Non-Toxic Pain Distress: None Mental Status: No: Agitated Finger Stick Blood Glucose: 125 Medical Decision Making ED Course and Treatment: History reviewed with patient, medical staff, and subsequently family members. On exam, she is alert, answering questions, no respiratory distress noted. No hypoxia. No symptomatic arrhythmias noted. Blood pressure stable. No incontinence. No acute trauma reported. No new medications reported. With serial exams she is pleasant, conversive, answers questions appropriately. Labs and imaging studies reviewed. Patient has been recently treated for UTI with unremarkable urine cultures reportedly. She is afebrile here. Case d/w Dr. Therese Rowe, will be admitted to telemetry bed for serial exams, monitroing. Chest X-ray reviewed, shows: IMPRESSION: No active disease. CT Head reviewed, shows: IMPRESSION: No intracranial mass, hemorrhage or evidence of acute infarct. Moderate to severe chronic periventricular white matter ischemic change. No additional abnormality - Lab Interpretations Lab Results: 06/21/18 17:17 Lab Results 06/21/18 17:17: PT 12.2, INR 1.07, APTT 29.9 06/21/18 17:17: WBC 7.0, RBC 4.14, Hgb 12.6, Hct 37.2, MCV 89.9, MCH 30.4, MCHC 33.9, RDW 12.4, Plt Count 354, MPV 9.3, Gran % 64.8, Lymph % (Auto) 21.3 L, [place] % (Auto) 11.3 H, Eos % (Auto) 2.3, Baso % (Auto) 0.3, Gran # 4.52, Lymph # (Auto) 1.5, [place] # (Auto) 0.8 H, Eos # (Auto) 0.2, Baso # (Auto) 0.02 - RAD Interpretation Radiology Orders: 06/21/18 17:02 HEAD W/O CONTRAST [CT] Stat 06/21/18 17:07 CHEST PORTABLE [RAD] Stat Disposition/Present on Arrival - Present on Arrival Any Indicators Present on Arrival: No History of DVT/PE: No History of Uncontrolled Diabetes: No Urinary Catheter: No History of Decub. Ulcer: No History Surgical Site Infection Following: None - Disposition Have Diagnosis and Disposition been Completed?: Yes Diagnosis: Near syncope, Altered mental status Disposition: HOSPITALIZED Disposition Time: 19:00 Patient Plan: Admission, Telemetry Condition: FAIR
--- NOTE | 2018-06-21 17:53 | CT ---
Date of service: 06/21/2018 PROCEDURE: CT HEAD WITHOUT CONTRAST. HISTORY: ams COMPARISON: 06/14/2018 TECHNIQUE: Axial computed tomography images were obtained through the head/brain without intravenous contrast. Radiation dose: Total exam DLP = 846.10 mGy-cm. This CT exam was performed using one or more of the following dose reduction techniques: Automated exposure control, adjustment of the mA and/or kV according to patient size, and/or use of iterative reconstruction technique. FINDINGS: HEMORRHAGE: No intracranial hemorrhage. BRAIN: No mass effect or edema. Minimal atrophy. Moderate to severe chronic periventricular white matter lucency with patchy deep/subcortical white matter lucency, consistent with microvascular white matter ischemic change. No evidence of acute infarct. VENTRICLES: Unremarkable. No hydrocephalus. CALVARIUM: Unremarkable. PARANASAL SINUSES: Unremarkable as visualized. No significant inflammatory changes. MASTOID AIR CELLS: Unremarkable as visualized. No inflammatory changes. OTHER FINDINGS: None. IMPRESSION: No intracranial mass, hemorrhage or evidence of acute infarct. Moderate to severe chronic periventricular white matter ischemic change. No additional abnormality
[2018-06-21 17:59] LABS: ALB/GLOB RATIO 1.2 (1.1-1.8); ALBUMIN 3.9 g/dL (3.0-4.8); ALT/SGPT 36 U/L (7-56); AST/SGOT 52 U/L (14-36); BLOOD UREA NITROGEN 13 mg/dL (7-21); CALCIUM 8.8 mg/dL (8.4-10.5); GFR NON-AFRICAN AMERICAN > 60
[2018-06-21 18:03] LABS: TROPONIN I < 0.01 ng/mL
[2018-06-21 18:09] LABS: URINE BILIRUBIN NEGATIVE (NEGATIVE); URINE BLOOD NEGATIVE (NEGATIVE); URINE GLUCOSE (UA) NEGATIVE (NEGATIVE); URINE LEUKOCYTE ESTERASE SMALL Leu/uL (NEGATIVE); URINE PROTEIN NEGATIVE mg/dL (<30 mg/dL); URINE UROBILINOGEN 0.2 E.U./dL (<1 E.U./dL)
--- NOTE | 2018-06-21 18:09 | RAD ---
Date of service: 06/21/2018 HISTORY: weakness COMPARISON: 06/09/2018 FINDINGS: LUNGS: No active pulmonary disease. PLEURA: No significant pleural effusion identified, no pneumothorax apparent. CARDIOVASCULAR: Normal. OSSEOUS STRUCTURES: No significant abnormalities. VISUALIZED UPPER ABDOMEN: Normal. OTHER FINDINGS: None. IMPRESSION: No active disease.
[2018-06-21 18:12] LABS: URINE APPEARANCE CLEAR (CLEAR); URINE COLOR YELLOW (YELLOW)
[2018-06-21 18:15] LABS: URINE RBC 0 - 2 /hpf (0-2)
[2018-06-21 18:16] LABS: URINE BACTERIA MOD (NEG)
[2018-06-21 18:22] LABS: BARBITURATES, UR NEGATIVE (NEGATIVE); BENZODIAZEPINES, UR NEGATIVE (NEGATIVE); OPIATES, UR NEGATIVE (NEGATIVE); PHENCYCLIDINE, UR NEGATIVE (NEGATIVE)
[2018-06-21] MEDS: Tobramycin/Dexamethasone (Tobradex) Opth Sol (2.5 ml) OU SCH (23:05)
[2018-06-22 02:53] VITALS: BMI 26.5
[2018-06-22 06:14] VITALS: O2SAT 95
[2018-06-22 07:13] LABS: HEMOGLOBIN 12.1 g/dL (12.0-16.0); MEAN CELL VOLUME 89.3 fl (80.0-105.0); MEAN CORPUSCULAR HGB CONC 33.6 g/dl (31.0-37.0); MEAN PLATELET VOLUME 9.3 fl (7.0-11.0); RBC 4.03 10^6/uL (3.5-6.1); RED CELL DISTRIBUTION WIDTH 12.4 % (11.5-14.5); WHITE BLOOD COUNT 5.5 10^3/ul (4.5-11.0)
--- NOTE | 2018-06-22 07:13 | HP ---
HISTORY OF PRESENT ILLNESS: I saw her this morning in the psychiatric floor. She was doing great. She was feeding herself. Her blood pressure was good. She had no complaints. She was pleasantly confused. This evening I had a call from the Rapid Response that her blood pressure was very high and she was not acting herself. She is an 83-year-old white female who presented not acting herself, appear short of breath. This is obtained from the medical people on the floor, she is feeling tired. No new medications. No fall. No injury. No complaints earlier. No loss of consciousness; just very weak and not herself. PAST MEDICAL HISTORY: She has a past medical history of hypertension, dementia, TIAs in the past. SOCIAL HISTORY: No smoker. No drinking. No drugs. ALLERGIES: NO KNOWN DRUG ALLERGIES. MEDICATIONS: She is on calcium plus losartan, hydrochlorothiazide, Norvasc, aspirin, Plavix, Geodon, Namenda, Risperdal. In the psychiatric floor, she is very tired. No fevers. No shortness of breath. No chest pain. No dyspnea on exertion. No abdominal pain. No diarrhea. No back pain. No neck pain. No rashes. No ulcers. PHYSICAL EXAMINATION: GENERAL: She is pleasant. She is smiling. She is talking to me. By the time I got to her, she was doing very well. She is talking very well. She is laughing with her family who was there. No suicidal thoughts. She is pleasantly confused. VITAL SIGNS: She has a 97.8 temperature, 96 pulse, 18 respiratory rate, 155/75 blood pressure, 100% O2 sat. HEENT: Head is atraumatic, normocephalic. Extraocular muscles are intact. Pupils equal and reacting to light. Left conjunctiva is mildly injected with drainage. I will put her on some TobraDex eyedrops. Membranes are moist. NECK: Good range of motion. No meningeal signs. No JVD. HEART: Regular rate. Normal rhythm. LUNGS: Decreased breath sounds, but clear to auscultation. ABDOMEN: Soft, nontender. Positive bowel sounds. No guarding. No rebound. No CVA tenderness. EXTREMITIES: No edema. SKIN: Warm and dry. NEUROLOGIC: Alert, awake, confused, pleasant, good eye contact, laughing. No palpable lymphadenopathy. Thyroid midline. Well-appearing at this time. She had a CAT scan of the head, which was fine. She had a chest x-ray, which was fine. She had multiple lab tests. White count 7, 12.6 hemoglobin, 37.2 hematocrit with a 354 platelets. INR is 1.07. Sodium 134, potassium 4.7, BUN 13, creatinine 0.6, GFR greater than 60, sugar is 107, calcium 8.8, magnesium 2.0, total bili is 0.3. AST is 52, ALT is 36, alk phos 62, lactate dehydrogenase is 540. Total creatinine kinase is 70. Troponin I is less than 0.01. Total protein 7.1, albumin is 2.9 and globulin is 2.2. Urine is positive for moderate bacteria, possible UTI. She has a near-syncope, lethargy, hypertension, UTI, dementia; she needs to be on one-on-one sitter. She was getting that in psychiatric unit because she wanders and we will keep a very close eye on her. I will consult cardio, neuro, and psychiatry. She will be on her medications and we will watch her very closely. Gulshan Rowe DO MTDDeann
[2018-06-22 07:47] LABS: ALB/GLOB RATIO 1.2 (1.1-1.8); ALBUMIN 3.4 g/dL (3.0-4.8); ALT/SGPT 31 U/L (7-56); AST/SGOT 29 U/L (14-36); BLOOD UREA NITROGEN 10 mg/dL (7-21); CALCIUM 8.7 mg/dL (8.4-10.5); GFR NON-AFRICAN AMERICAN > 60
[2018-06-22] MEDS ORDERED: [UNRECOGNIZED DRUG - MIXTURE] PO SCH (10:00)
[2018-06-22] MEDS: Tobramycin/Dexamethasone (Tobradex) Opth Sol (2.5 ml) OU SCH ×3 (10:18→18:24)
[2018-06-22 12:58] VITALS: BP 118/53; PULSE 72; RESP 94; TEMP 98.8
--- NOTE | 2018-06-22 13:20 | PN ---
DATE: 06/22/2018 SUBJECTIVE: Shortly, the patient was transferred from the Psychiatric Inpatient Unit status post near syncopal episode. The patient was admitted on the medical site on the second floor. Medical team requested followup consultation on this patient. The patient presented well. The patient does not remember this writer producer, seems to be at her baseline. Of note, the patient was scheduled for discharge today with her family and family was arranging 24 hours 7 days a week care by private paid home health aide. The patient tolerates medications well. No agitation or aggression. The patient is more compliant with the medications. The patient is set for discharge from the Psychiatric Inpatient Unit. Vital signs seems to be stable. Temperature 97.5, pulse is 70, blood pressure 138/57, respiration 20, oxygen saturation is 95. Medications reviewed. The patient is on Norvasc, aspirin, Plavix, hydrochlorothiazide, Ativan 0.5 mg every 6 hours as needed, Cozaar, Namenda 10 mg p.o. daily. The patient is on Risperdal 0.5 mg twice a day. We will continue that, Geodon as well as tobramycin. Labs reviewed, seems to be stable. Chemistry stable. Urinalysis, leukocyte esterase small. Toxicology is negative for any substances. MENTAL STATUS EXAM: The patient presented at her baseline. The patient is confused, but not aggressive, compliant with the medications. Mood described as " I am fine." Affect was reactive. At times, the patient is smiling inappropriately. Thought process disorganized. The patient has tendency of seeing things and feeling paranoid, but much improved. Thought content, the patient denied thoughts of harming herself or others, but this writer producer is doubtful that the patient understand the question, but the patient is not aggressive, not agitated. Insight and judgment impaired, seems to be at baseline because the patient is demented and impulses are better controlled. IMPRESSION: Dementia with behavioral disturbances, rule out Alzheimer's disease. The patient was admitted on the Psychiatric Inpatient Unit for altered mental status to reach maximum effect from this hospitalization. PLAN: This writer producer will sign off. The patient deemed to be at her baseline. Family is aware about the discharge plan. The patient needs to be followed up with Dr. Rowe home visits as well as Dr. Booker referrals were provided. Family meeting took place in the Psychiatric Inpatient Unit. Meanwhile, continue current management. Continue current medication. The patient is not in any imminent danger to self or others. Placement was offered to the family, but family does not want to do so as of yet. Meanwhile, should you have any questions, give me a call back. This writer producer will sign off. Roxie Salas MD
--- NOTE | 2018-06-22 14:41 | CON ---
DATE: 06/22/2018 HISTORY OF PRESENT ILLNESS: This is an 83-year-old woman with history of hypertension, dyslipidemia, dementia, TIAs, history of behavioral disturbance with a recent urinary tract infection, who was brought in. Rapid response was called for generalized weakness, short of breath, not acting herself and was generally weak. She has transient confusional state as well. At this time, CAT scan of the head showed no acute intracranial abnormalities. Her chest x-ray showed no active pulmonary disease. Her blood pressures were transiently elevated. It could be secondary to hypertensive encephalopathy causing confusional state and was mildly dehydrated and fluids were given. Currently, she is walking around without any difficulties, back to her baseline. PAST MEDICAL HISTORY: As above. SOCIAL HISTORY: No illicit drug use, smoking or EtOH abuse. ALLERGIES: NO KNOWN DRUG ALLERGIES. MEDICATIONS: Reviewed by nurses' reconciliation sheet. REVIEW OF SYSTEMS: Fourteen-point review of systems is negative except as per the HPI. FAMILY HISTORY: Noncontributory. LABORATORY DATA: Sodium is 137, potassium 4, chloride 102, carbon dioxide 26, BUN of 10, creatinine 0.6, random glucose 85. PHYSICAL EXAMINATION: VITAL SIGNS: Temperature 98.8, pulse rate of 72, blood pressure 118/52, respiratory rate of 20, oxygen saturation 95% by room air. GENERAL: The patient is sitting up in bed, in no acute distress. HEENT: Atraumatic, normocephalic. PERRLA. Extraocular muscles intact. NECK: Supple. No JVD, no adenopathy noted. LUNGS: Clear to auscultation. No adventitious sounds. HEART: S1, S2. Normal rate and rhythm. No murmurs, rubs or gallops. ABDOMEN: Soft, nontender and nondistended. Bowel sounds are present. EXTREMITIES: No clubbing. No cyanosis. Peripheral pulses 2+ felt bilaterally. NEUROLOGIC: The patient is alert and oriented to person, place, month and not year. Recall after 5 minutes is 0/3. Poor attention span. Slow thought process. Poor insight. Speech is fluent without any errors. Cranial nerves II through XII intact. Motor exam: Moves all extremities equally. Slightly increased tone throughout. Mildly deconditioned. Sensory exam: Light touch, pinprick, proprioception and vibration are intact. DTRs are 2+ throughout, 1 at both knees and ankles. Coordination: Soexpf-jy-zzki intact. No dysmetria noted. Gait is highly wide based, otherwise Romberg negative. IMPRESSION: Generalized weakness/transient confusional state, superimposed underlying moderate cognitive impairment. At this time, recommend, 1. Proper hydration throughout the day. 2. Keep her systolic pressure between 130s-140s and diastolic 70-80s. 3. Continue with her Namenda 10 mg p.o. at bedtime for underlying dementia. 4. Physical therapy/occupational therapy as an outpatient. She is clinically stable from my standpoint. Once again, thank you for this consult. Rubén Pozo MD
--- NOTE | 2018-06-22 16:55 | CARD ---
APPROVED REPORT Date of service: 06/22/2018 EXAM: Two-dimensional and M-mode echocardiogram with Doppler and color Doppler. INDICATION Dizziness and Vertigo 2D DIMENSIONS Left Atrium (2D)3.4 (1.6-4.0cm)IVSd0.9 (0.7-1.1cm) LVDd4.2 (3.9-5.9cm)PWd1.0 (0.7-1.1cm) LVDs2.8 (2.5-4.0cm)FS (%) 33.0 % LVEF (%)61.9 (>50%) M-Mode DIMENSIONS Aortic Root2.90 (2.2-3.7cm)Aortic Cusp Exc.1.60 (1.5-2.0cm) Aortic Valve AoV Peak Vygwxwwh117.0cm/Cris Peak GR.13mmHgAI P 1/2 Bndl288we Mitral Valve MV E Dypxtzjt81.4cm/sMV A Nmzkgqdw28.4cm/sE/A ratio1.0 TDI E/Lateral E'0.0E/Medial E'0.0 Pulmonary Valve PV Peak Gdylbrge57.0cm/sPV Peak Grad.2mmHg Tricuspid Valve TR Peak Yaaegtcv796fk/sRAP [id number] Peak Gr.33mmHg [id number] LEFT VENTRICLE The left ventricle is normal size. There is normal left ventricular wall thickness. The left ventricular function is normal. The left ventricular ejection fraction is within the normal range. There is normal LV segmental wall motion. Transmitral Doppler flow pattern is Grade I-abnormal relaxation pattern. RIGHT VENTRICLE The right ventricle is normal size. There is normal right ventricular wall thickness. The right ventricular systolic function is normal. ATRIA The left atrium size is normal. The right atrium size is normal. AORTIC VALVE The aortic valve is mildly sclerotic. There is mild aortic regurgitation. There is no aortic valvular stenosis. MITRAL VALVE The mitral valve is mildly thickened. There is no mitral valve regurgitation noted. There is no mitral valve stenosis. TRICUSPID VALVE The tricuspid valve is normal in structure. There is mild tricuspid regurgitation. There is mild pulmonary hypertension. PULMONIC VALVE The pulmonary valve is normal in structure. There is no pulmonic valvular regurgitation. There is no pulmonic valvular stenosis. GREAT VESSELS The aortic root is normal in size. The IVC is normal in size and collapses >50% with inspiration. PERICARDIAL EFFUSION There is a trace loculated anterior pericardial effusion. <Conclusion> The left ventricle is normal size. There is normal left ventricular wall thickness. The left ventricular function is normal. The left ventricular ejection fraction is within the normal range. There is normal LV segmental wall motion. Transmitral Doppler flow pattern is Grade I-abnormal relaxation pattern. There is mild aortic regurgitation. There is mild tricuspid regurgitation. There is mild pulmonary hypertension.
--- NOTE | 2018-06-22 18:23 | CP.PCM.PCO ---
Physician Communication Note - Physician Communication Note Physician Communication Note: pt is cleared by psychiatric team, pt does NOT need to be transferred back Addendum Addendum: 06/22/18 18:23 pt is cleared by psychiatric team, pt does NOT need to be transferred back to [facility] unit
--- NOTE | 2018-06-23 05:22 | DS ---
HISTORY OF PRESENT ILLNESS: She is resting comfortably in bed this morning. She slept well last night. She still has one to one because she wanders. I am hoping that I can discharge her home. I discussed with Roxie, the psychiatrist that the plan was to be discharged today that was arranged from upstairs and I think if neurology and cardiology say she is okay, we will discharge her home. She is on aspirin, Ativan, vitamins, Cozaar, Geodon, Microzide, Namenda, Norvasc, Plavix, Risperdal and TobraDex eyedrops for an eye infection. PHYSICAL EXAMINATION: VITAL SIGNS: She has a 97.5 temperature, 70 pulse, 127/74 blood pressure, 20 respiratory rate and 95% sat on room air. HEENT: Head is atraumatic and normocephalic. GENERAL: Alert, confused, pleasant. HEART: Regular rate. LUNGS: Decreased breath sounds, but clear. ABDOMEN: Soft and nontender. Positive bowel sounds. EXTREMITIES: No edema. LABORATORY DATA: She has a white count of 5.5, hemoglobin 12.1, hematocrit 36.0 and 353 platelets, very good. INR is 1.07. Sodium 137, potassium 4, BUN 10, creatinine 0.6, GFR is greater than 60, sugar is 85, calcium is 8.7, total bili is 0.2, AST is 29, ALT is 31, alk phos 58, troponin I is less than 0.01 and total protein 6.2. She was treated for UTI on the other side and became okay, so I am hoping that she can go home today if the Neurology and Cardiology sees her including code-44 to observation level of care and we will see what Cardio and Neuro says. Gulshan Rowe DO
== END 2018-06-22 19:58 | disposition home health service (06) ==
LOC: ED 16:50 → INTOOBSV 19:39 → ERH 19:39 → 2RSO 21:41
PROVIDERS: ADMIT Family Medicine; ATTEND Family Medicine
DX: R55 Syncope and collapse (principal); F03.91 Unspecified dementia, unspecified severity, with behavioral disturbance; N39.0 Urinary tract infection, site not specified; R53.1 Weakness; R53.83 Other fatigue; R41.82 Altered mental status, unspecified; Z91.83 Wandering in diseases classified elsewhere; I10 Essential (primary) hypertension; E78.5 Hyperlipidemia, unspecified; Z79.82 Long term (current) use of aspirin; Z86.73 Personal history of transient ischemic attack (TIA), and cerebral infarction without residual deficits
CPT/HCPCS: 36415; 70450; 71045; 80053; 81001; 82550; 83615; 83735; 84484; 85025; 85027; 85610; 85730; 87086; 93306; 97161; 97530; 99285; G0378; G0480; G8978; G8979

== ENCOUNTER 2018-07-29 20:44 | Emergency (ER) | payer MEDICARE ==
[2018-07-29 20:53] VITALS: BMI 21.3
[2018-07-29 21:03] VITALS: RESP 18
--- NOTE | 2018-07-29 22:31 | ED PDOC ---
Arrival/HPI - General Historian: Family - History of Present Illness Narrative History of Present Illness (Text): 07/29/18 22:28 83yo female with pmhx of hypertension, Dementia, who was bib the family members with complaint of left sided headache s/p trauma this evening. the daughter by the bedside states she thinks that while patient was trying to grab a bathtub door know with a towel, the towel slipped and she fell, hitting the left side of her head on a bathtub. The aid states she ran into the ED immediately s/p and patient was alert and awake. The daughter by the bedside states patient complaint of right sided hip and rib pain s/p. Patient denies dizziness, LOC, nausea, vomiting, focal weakness, any other complaint. <Narda Dorantes A - Last Filed: 07/30/18 01:00> <Jatinder Johnson - Last Filed: 07/31/18 11:32> - General Chief Complaint: Trauma Past Medical History - Provider Review Nursing Documentation Reviewed: Yes - Infectious Disease Hx of Infectious Diseases: None - Tetanus Immunization Tetanus Immunization: Unknown - Cardiac Hx Cardiac Disorders: Yes Hx Hypertension: Yes - Pulmonary Hx Tuberculosis: No - Neurological Hx Neurological Disorder: Yes Hx Dementia: Yes Hx Transient Ischemic Attacks (TIA): Yes - Hematological/Oncological Hx Blood Transfusions: No Hx Blood Transfusion Reaction: No - Musculoskeletal/Rheumatological Hx Arthritis: Yes - Genitourinary/Gynecological Hx Sexually Transmitted Diseases: No - Psychiatric Hx Depression: No Hx Emotional Abuse: No Hx Physical Abuse: No Hx Substance Use: No - Surgical History Other/Comment: Colonoscopy - Anesthesia Hx Anesthesia Reactions: No Hx Malignant Hyperthermia: No - Suicidal Assessment Feels Threatened In Home Enviroment: No <Narda Dorantes A - Last Filed: 07/30/18 01:00> Family/Social History - Physician Review Nursing Documentation Reviewed: Yes Family/Social History: Unknown Family HX Smoking Status: Never Smoked Hx Alcohol Use: No Hx Substance Use: No Hx Substance Use Treatment: No <Narda Dorantes A - Last Filed: 07/30/18 01:00> Allergies/Home Meds <Narda Dorantes A - Last Filed: 07/30/18 01:00> <Jatinder Johnson - Last Filed: 07/31/18 11:32> Allergies/Adverse Reactions: Allergies No Known Allergies Allergy (Verified 07/29/18 20:53) Review of Systems - Physician Review All systems were reviewed & negative as marked: Yes - Review of Systems Constitutional: Normal Eyes: Normal ENT: Normal Respiratory: Normal Cardiovascular: Normal Gastrointestinal: Normal Genitourinary Female: Normal Musculoskeletal: Arthralgias (Right ribs and hip) Skin: Normal Neurological: Normal Endocrine: Normal Hemo/Lymphatic: Normal Psychiatric: Normal <Diru,Happiness A - Last Filed: 07/30/18 01:00> Physical Exam Vital Signs Reviewed: Yes Vital Signs Pulse Resp BP Pulse Ox 07/29/18 20:59 100 H 18 143/94 H 98 Temperature: Afebrile Blood Pressure: Normal Pulse: Regular Respiratory Rate: Normal Appearance: Positive for: Well-Appearing, Non-Toxic, Comfortable Pain Distress: None Mental Status: Positive for: Alert and Oriented X 3 - Systems Exam Head: Present: Atraumatic, Normocephalic Pupils: Present: PERRL Extroacular Muscles: Present: EOMI Conjunctiva: Present: Normal Mouth: Present: Moist Mucous Membranes Neck: Present: Normal Range of Motion Respiratory/Chest: Present: Clear to Auscultation, Good Air Exchange. No: Respiratory Distress, Accessory Muscle Use, Wheezes, Decreased Breath Sounds, Rales, Retracting, Rhonchi, Tachypneic, Tender to Palpation (Right ribs) Cardiovascular: Present: Regular Rate and Rhythm, Normal S1, S2. No: Murmurs Abdomen: No: Tenderness, Distention, Peritoneal Signs Back: Present: Normal Inspection Upper Extremity: Present: Normal Inspection. No: Cyanosis, Edema Lower Extremity: Present: Normal Inspection, NORMAL PULSES, Normal ROM, Neurovascularly Intact. No: Edema, Tenderness (Over right hip), Swelling Neurological: Present: GCS=15, CN II-XII Intact, Speech Normal, Motor Func Grossly Intact, Normal Sensory Function Skin: Present: Warm, Dry, Normal Color. No: Rashes Psychiatric: Present: Alert, Oriented x 3, Normal Insight, Normal Concentration <Diru,Happiness A - Last Filed: 07/30/18 01:00> Vital Signs Pulse Resp BP Pulse Ox 07/29/18 20:59 100 H 18 143/94 H 98 <Jatinder Johnson - Last Filed: 07/31/18 11:32> Medical Decision Making ED Course and Treatment: 07/30/18 01:02 Pt presented to ED for stated history. She was not in any distress in ED. She was AAO x3. Neurologically intact. Head CT Right rib/hip xray Tylenol 650mg Head CT - No acute finding Right rib/chest xray - No fracture. No PTX noted Hip xray - No acute fracture noted Result was DW both pt and the family members. she was DC home with Tramadol. Referred to her PMD. - RAD Interpretation Radiology Orders: 07/29/18 21:02 HEAD W/O CONTRAST [CT] Stat 07/29/18 21:16 Hip Bilateral [HIP MIN 3V W/ PELVIS ZACHARY] [RAD] Stat 07/29/18 21:17 RIBS RIGHT & PA CHEST [RAD] Stat <Narda Dorantes - Last Filed: 07/30/18 01:00> - RAD Interpretation Narrative RAD Interpretations (Text): CT Head: BRAIN Chronic periventricular and subcortical microvascular disease is seen. VENTRICLES: There is generalized parenchymal atrophy noted as demonstrated by symmetrical dilatation of ventricles and sulci. ORBITS: The orbits are unremarkable. SINUSES AND MASTOIDS: The paranasal sinuses and mastoid air cells are clear. BONES: No fracture. SOFT TISSUES: Unremarkable. MISCELLANEOUS: No acute intracranial pathology. IMPRESSION: 1. There is generalized parenchymal atrophy noted as demonstrated by symmetrical dilatation of ventricles and sulci. 2. Chronic periventricular and subcortical microvascular disease is seen. 3. No acute intracranial pathology. Electronically signed on Jul 29, 2018 10:17:47 PM EST by: Palomo Jacobson M.D., ROLANDA Certified By [facility] & [facility] Fellowship Trained MRI and CT Specialist Radiology Orders: 07/29/18 21:02 HEAD W/O CONTRAST [CT] Stat 07/29/18 21:16 Hip Bilateral [HIP MIN 3V W/ PELVIS ZACHARY] [RAD] Stat 07/29/18 21:17 RIBS RIGHT & PA CHEST [RAD] Stat Group Home Counselor: Radiologist - Medication Orders Current Medication Orders: Discontinued Medications Acetaminophen (Tylenol 325mg Tab) 650 mg PO STAT STA Stop: 07/29/18 22:28 <Jatinder Johnson - Last Filed: 07/31/18 11:32> - PA / [employer] TECHNICIAN / Resident Statement MD/DO has reviewed & agrees with the documentation as recorded. <Jatinder Johnson - Last Filed: 07/31/18 11:32> Disposition/Present on Arrival - Present on Arrival Any Indicators Present on Arrival: No History of DVT/PE: No History of Uncontrolled Diabetes: No Urinary Catheter: No History of Decub. Ulcer: No History Surgical Site Infection Following: None - Disposition Have Diagnosis and Disposition been Completed?: Yes Disposition Time: 22:35 Patient Plan: Discharge <Narda Dorantes - Last Filed: 07/30/18 01:00> <Jatinder Johnson - Last Filed: 07/31/18 11:32> - Disposition Diagnosis: Head injury, Hip pain Disposition: HOME/ ROUTINE Condition: STABLE Discharge Instructions (ExitCare): Minor Head Injury, Hip Pain (DC) Additional Instructions: Follow up with your Doctor Return to ED for any new or worsening symptoms Prescriptions: RX: traMADol [Ultram] 50 mg PO TID #7 tab Referrals: Gulshan Rowe DO [Primary Care Provider] - Follow up with primary Forms: [employer] (Turkmen)
[2018-07-29 22:55] VITALS: BP 135/76; PULSE 82; TEMP 98.2; O2SAT 99
--- NOTE | 2018-07-30 09:47 | RAD ---
PROCEDURE: Radiographs of the pelvis and bilateral hips HISTORY: left hip pain COMPARISON: None. FINDINGS: BONES: Pelvis: Unremarkable. Right hip:Unremarkable. Left hip:Unremarkable. JOINTS: Right hip: Unremarkable. Left hip: Unremarkable. Sacroiliac Joints: Unremarkable. Pubic symphysis: Unremarkable. SOFT TISSUES: Normal. OTHER FINDINGS: None. IMPRESSION: Unremarkable radiographs of the hips and pelvis.
--- NOTE | 2018-07-30 09:53 | RAD ---
Date of service: 07/29/2018 PROCEDURE: Radiographs of the Chest and Right Ribs. HISTORY: rib pain s/p trauma COMPARISON: None available. TECHNIQUE: Frontal radiograph of the chest and multiple oblique radiographs of the right ribs were obtained. FINDINGS: RIGHT RIBS: Minimally displaced fracture of the right 10th rib laterally LUNGS: Clear. PLEURA: No pneumothorax or pleural fluid. CARDIOVASCULAR: Normal cardiac size. No pulmonary vascular congestion. Aortic calcifications OTHER FINDINGS: None. IMPRESSION: Minimally displaced fracture of the right 10th rib laterally
--- NOTE | 2018-07-30 10:07 | CT ---
Date of service: 07/29/2018 PROCEDURE: CT HEAD WITHOUT CONTRAST. HISTORY: s/p head injury COMPARISON: 06/21/2018 TECHNIQUE: Axial computed tomography images were obtained through the head/brain without intravenous contrast. Radiation dose: Total exam DLP = 885.98 mGy-cm. This CT exam was performed using one or more of the following dose reduction techniques: Automated exposure control, adjustment of the mA and/or kV according to patient size, and/or use of iterative reconstruction technique. FINDINGS: HEMORRHAGE: No intracranial hemorrhage. BRAIN: No mass effect or edema. Chronic microvascular changes are seen in the periventricular white matter. There is mild atrophy. VENTRICLES: Unremarkable. No hydrocephalus. CALVARIUM: Unremarkable. PARANASAL SINUSES: Unremarkable as visualized. No significant inflammatory changes. MASTOID AIR CELLS: Unremarkable as visualized. No inflammatory changes. OTHER FINDINGS: The report concurs with the preliminary [facility] report IMPRESSION: No acute intracranial findings
== END 2018-07-29 22:55 | disposition home or self-care (01) ==
LOC: ED 20:44
DX: S09.90XA Unspecified injury of head, initial encounter (principal); S22.31XA Fracture of one rib, right side, initial encounter for closed fracture; M25.551 Pain in right hip; W01.198A Fall on same level from slipping, tripping and stumbling with subsequent striking against other object, initial encounter; Y92.012 Bathroom of single-family (private) house as the place of occurrence of the external cause

== ENCOUNTER 2018-09-22 14:29 | Emergency (ER) | payer MEDICARE ==
[2018-09-22 14:44] VITALS: BMI 23.0
[2018-09-22] MEDS ORDERED: Lidocaine 5% Patch TD STA (15:59)
--- NOTE | 2018-09-22 16:03 | ED PDOC ---
Arrival/HPI - General Time Seen by Provider: 09/22/18 15:17 Historian: Patient - History of Present Illness Narrative History of Present Illness (Text): 09/22/18 16:00 A 83 year old female, whose past medical history includes dementia, presents to the emergency department acompanied by daughter and home health aid complaining of lower back pain for the past few days. Patient's daughter reports patient's back pain is radiating down her right leg and foot. Per daughter, patient was sent to the ER by Dr. Rowe for clearer xrays of her back. Daughter reports patient was given treatment of heating pads, capsaicin cream, and tylenol to no relief. Patient denies any fever, chills, shortness of breath, neck pain, headache, dizziness, or any other complaints. No PMD Time/Duration: Other (past few days) Symptom Onset: Gradual Symptom Course: Unchanged Activities at Onset: Light Context: Home Past Medical History - Provider Review Nursing Documentation Reviewed: Yes - Infectious Disease Hx of Infectious Diseases: None - Tetanus Immunization Tetanus Immunization: Unknown - Cardiac Hx Cardiac Disorders: Yes Hx Hypertension: Yes - Pulmonary Hx Tuberculosis: No - Neurological Hx Neurological Disorder: Yes Hx Dementia: Yes Hx Transient Ischemic Attacks (TIA): Yes - Hematological/Oncological Hx Blood Transfusions: No Hx Blood Transfusion Reaction: No - Musculoskeletal/Rheumatological Hx Arthritis: Yes - Genitourinary/Gynecological Hx Sexually Transmitted Diseases: No - Psychiatric Hx Depression: No Hx Emotional Abuse: No Hx Physical Abuse: No Hx Substance Use: No - Surgical History Other/Comment: Colonoscopy - Anesthesia Hx Anesthesia Reactions: No Hx Malignant Hyperthermia: No - Suicidal Assessment Feels Threatened In Home Enviroment: No Family/Social History - Physician Review Nursing Documentation Reviewed: Yes Family/Social History: No Known Family HX Smoking Status: Never Smoked Hx Alcohol Use: No Hx Substance Use: No Hx Substance Use Treatment: No Allergies/Home Meds Allergies/Adverse Reactions: Allergies No Known Allergies Allergy (Verified 07/29/18 20:53) Review of Systems - Physician Review All systems were reviewed & negative as marked: Yes - Review of Systems Constitutional: absent: Fevers, Other (chills) Respiratory: absent: SOB Musculoskeletal: Back Pain (lower back pain). absent: Neck Pain Neurological: absent: Headache, Dizziness Physical Exam - Physical Exam Narrative Physical Exam (Text): 09/22/18 16:01 Gen: VS reviewed, alert, well developed, well nourished, nontoxic, mild distress. ENT: normal pharynx. Eye: EOMI, PERRL. Neck: no JVD, supple, no adenopathy. CV: regular rate, regular rhythm, no rubs, no murmur, no gallops, S1, S2, pulses equal and strong. Pulm: no distress, clear to auscultation, no wheeze, no rhonchi, breath sounds equal, no rales. Abd: soft, nontender, no guarding, no rebound, no rigidity, normal bowel sounds. Back: questionable tenderness at sacrum area without bruising. Ext: no edema. Skin: good color, no rash, no cyanosis. Psych: responds appropriately to questions, normal affect. Neuro: oriented x 3, CN2-12 intact grossly, motor intact, sensation intact. Vital Signs Reviewed: Yes Temperature: Hypothermic Blood Pressure: Normal Pulse: Regular Respiratory Rate: Normal Appearance: Positive for: Well-Appearing, Non-Toxic Medical Decision Making ED Course and Treatment: 09/22/18 16:03 Impression: 83 year old female presenting to the emergency department complaining of lower back pain. Plan: -- EKG -- Labs -- CBC -- Zofran -- IV fluids -- Reassess and disposition Prior Visits: Notes and results from previous visits were reviewed. Progress Notes: 09/22/18 18:41 patient was seen for low back pain with radicular symptoms. there was a questionable hx of fall. xray was done to rule out fracture however patient clinically has lumbosacral radiculopathy without neuro deficits. - Scribe Statement The provider has reviewed the documentation as recorded by the Aminaibsky Mendez All medical record entries made by the Scribe were at my direction and personally dictated by me. I have reviewed the chart and agree that the record accurately reflects my personal performance of the history, physical exam, medical decision making, and the department course for this patient. I have also personally directed, reviewed, and agree with the discharge instructions and disposition. Disposition/Present on Arrival - Present on Arrival Any Indicators Present on Arrival: No History of DVT/PE: No History of Uncontrolled Diabetes: No Urinary Catheter: No History Surgical Site Infection Following: None - Disposition Have Diagnosis and Disposition been Completed?: Yes Diagnosis: Radiculopathy of sacrococcygeal region Disposition: HOME/ ROUTINE Disposition Time: 18:37 Patient Plan: Discharge Patient Problems: Current Active Problems Problem Status Onset Radiculopathy of sacrococcygeal region Acute Condition: STABLE Discharge Instructions (ExitCare): Radiculopathy (DC)
[2018-09-22 17:35] VITALS: TEMP 97.6; O2SAT 99
[2018-09-22 18:47] VITALS: BP 159/98; PULSE 84; RESP 18
--- NOTE | 2018-09-23 11:09 | RAD ---
Date of service: 09/22/2018 PROCEDURE: Radiographs of the Lumbar Spine. HISTORY: pain COMPARISON: No prior. FINDINGS: BONES: Normal alignment. No listhesis. No fracture. DISC SPACES: Disc degeneration at L5-S1 OTHER FINDINGS: None. 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
--- NOTE | 2018-09-23 11:10 | RAD ---
Date of service: 09/22/2018 PROCEDURE: Radiographs of the Sacrum and Coccyx HISTORY: pain COMPARISON: None available. TECHNIQUE: Frontal and lateral views of the sacrum and coccyx FINDINGS: BONES: Sacrum and coccyx unremarkable. No fracture or focal lesion. SACROILIAC JOINTS: Unremarkable. OTHER FINDINGS: None. IMPRESSION: Unremarkable radiographs of the sacrum and coccyx.
== END 2018-09-22 18:44 | disposition home or self-care (01) ==
LOC: ED 14:29
DX: M54.18 Radiculopathy, sacral and sacrococcygeal region (principal); I10 Essential (primary) hypertension; Z86.73 Personal history of transient ischemic attack (TIA), and cerebral infarction without residual deficits